=== PATIENT | male | born 1985 | race Caucasian/White ===

== ENCOUNTER 2024-10-18 00:43 | Emergency (ER) | payer OTHER, SELFPAY ==
[2024-10-18 00:44] VITALS: BP 116/77; PULSE 47; RESP 19; TEMP 36.7; O2SAT 100; BMI 22.7
--- NOTE | 2024-10-18 00:50 | EKG12_ITS ---
Test Reason : DYSRHYTHMIA Blood Pressure : */* mmHG Vent. Rate : 49 BPM Atrial Rate : 49 BPM P-R Int : 192 ms QRS Dur : 90 ms QT Int : 476 ms P-R-T Axes : 53 60 49 degrees QTcB Int : 429 ms Sinus bradycardia Septal infarct , age undetermined Abnormal ECG Confirmed by ROYAL PANIAGUA MD ([id number]), writer editor MAX COTTON ([id number]) on 10/19/2024 1:13:39 PM Referred By: BLAKE Confirmed By: ROYAL PANIAGUA MD
[2024-10-18 01:20] LABS: Hematocrit 41.6 % (40-54); Hemoglobin 14.1 g/dL (13.0-16.5); Immature Granulocytes Count 0.100 X10^3/uL (0.0-0.0); Mean Corp Hgb Conc 33.9 g/dL (32-36); Mean Corpuscular Volume 87.6 fL (80-94); Mean Platelet Vol. 8.9 fl (6.2-12.0); NRBC Flagged by Analyzer 0 % (0-5); Platelet Count 191 K/mm3 (150-450); RBC Distribution Width CV 12.9 % (11.6-14.6); RBC Distribution Width SD 41.8 fl (35.1-43.9); Red Blood Count 4.75 M/mm3 (4.6-6.2); White Blood Count 16.0 K/mm3 (4.4-11.0)
--- NOTE | 2024-10-18 01:20 | RAD_ITS ---
PROCEDURE: CHEST PA AND LATERAL 10/18/2024 REASON FOR EXAM: CHEST PAIN TECHNIQUE: CHEST PA AND LATERAL COMPARISON: No FINDINGS: Normal heart size. Well inflated lungs. No consolidation, effusion, or pneumothorax. RAD/Chest PA and Lateral IMPRESSION: No acute chest findings. Reading Location: [place] [id number]
[2024-10-18] MEDS: Lidocaine 2% Viscous15 ML UDC 15 ML PO (01:28)
[2024-10-18] MEDS: Pantoprazole Sodium 40 MG in 0.9% Normal Saline (100mL MB+) 100 ML 300 MG IV (01:34)
[2024-10-18 01:43] VITALS: BP 113/74; PULSE 45; RESP 15; O2SAT 97
[2024-10-18 02:00] VITALS: BP 110/76; PULSE 47; RESP 15; O2SAT 97
--- OUTSIDE RECORDS SUMMARY | 2024-10-18 02:01 | XMS RPT_ITS | CCD ---
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 Name Role Phone Walter Little MD Primary Care Provider WALTER LITTLE Referring UnavailWALTER Navarro Primary Care Unavailab GIULIANA Weldon Attending WALTER Larios Attending WALTER Garvin Primary Care UnavailWALTER Navarro Attending WALTER Garvin Primary Care UnavailWALTER Navarro Referring Unavailab WALTER Forrest Attending WALTER Garvin Primary Care UnavailWALTER Navarro Referring UnavailWALTER Navarro Primary Care Unavailab torrez Medications Completed/Discontinued Medications Medication Drug Class(es) Dates Sig (Normalized) Sig (Original) multivitamin tablet (4 sources) Start: 11-07-2021 take 1 tablet by mouth once daily multivitamin tablet Take 1 tablet by mouth once daily. 0 11/07/2021 Active Comment on above: Take 1 tablet by leyda th once daily. sertraline 50 mg oral tablet (8 sources) Serotonin Reuptake Inhibitor Start: 01-10-2021 take 1 tablet by mouth once daily sertraline (ZOLOFT) 50 mg tablet Take 1 tablet by mouth once daily. 90 tablet 3 01/10/2021 Active Comment on above: Take 1 tablet by leyda th once daily. Problems Active Problems Problem Classification Problem Date Documented Date Episodic/Chronic Adjustment disorders (8 sources) Adjustment disorder with mixed anxiety and depressed mood; Translations: [Adjustment disorder with mixed anxiety and depressed mood] Onset: 01-20-2017 01-20-2017 Chronic Anxiety disorders (2 sources) Generalized anxiety disorder; Translations: [Generalized anxiety disorder] Onset: 08-04-2021 Chronic Immunizations and screening for infectious disease (4 sources) Patient encounter status; Translations: [Encounter for screening for human immunodeficiency virus [HIV]] Onset: 11-07-2021 Episodic Mood disorders (3 sources) Severe recurrent major depression without psychotic features; Translations: [Major depressive disorder, recurrent severe without psychotic features] Onset: 08-04-2021 Chronic Other skin disorders (2 sources) Epidermoid cyst of skin of back; Translations: [Epidermal cyst] Episodic Other skin disorders (1 source) Epidermal cyst; Translations: [Epidermoid cyst of skin of back] Onset: 11-15-2021 Episodic Past or Other Problems Problem Classification Problem Date Documented Da te Episodic/Chronic Suicide and intentional self-inflicted injury (2 sources) Suicidal thoughts; Translations: [Suicidal ideations] Onset: 08-04-2021 Episodic Results Test Name Value Interpretation Reference Range Gema Moreno 11-15-2021 CNOV Office Visit (HEATHER ) [place] ([id number]) 1985 M Date Time Provider Department 11/15/21 4:00 PM GIULIANA VIDAL During your visit today, we recorded the following information about you: Temperature Pulse Blood pressure Weight 97.5 degrees 57/minute 122/68 78.5 kg Height 1.778 m Mariposa Mariscal LPN 11/15/2021 3:57 PM Signed REVIEW OF SYSTEMS: General: The patient denies fatigue, denies weight loss, denies weight gain, denies feeling hot, and denies feelings of cold. Eyes: The patient denies glaucoma, denies eye injury/surgery, does not wear glasses or contacts. Ear/Nose/Throat: The patient notes allergies, denies hayfever, denies ear infections, and denies bloody noses. Cardiovascular: The patient denies chest pain, denies heart disease, denies high blood pressure,denies cardiac stent, denies prior heart attack, denies irregular heart beat, denies high cholesterol, denies poor circulation, denies heart failure, other cardiac issues, denies claudication, denies cold feet, denies peripheral arterial stent. Respiratory: The patient denies tuberculosis, notes pneumonia, denies frequent cough, denies pulmonary embolism, denies shortness of breath, and denies coughing up blood. Gastrointestinal: The patient denies difficulty swallowing, denies acid reflux, denies ulcers, denies vomiting, denies jaundice/hepatitis, denies gallbladder problems, denies black or tarry stools, denies hemorrhoids, denies bleeding from rectum, denies diverticulitis, denies constipation, denies diarrhea, denies loss of stool control, and denies hernias. Kidney/Bladder: The patient denies kidney stones, denies urine infections, and denies bloody urine. Skin: The patient denies a history of skin cancer, denies bleeding/changing moles, and denies a history of skin rash. Neurologic: The patient denies a history of epilepsy/convulsions, notes headaches, denies head/spinal injuries, and denies stroke/TIA. Psychiatric: The patient denies psychiatric medications, notes depression, and denies voices, denies substance abuse. Endocrine: The patient denies thyroid disorders, denies diabetes, and denies hormonal problems. Hematologic: The patient denies a history of bruising, denies bleeding, and denies anemia, denies blood clots. Infections: The patient denies a history of measles and mumps, denies rheumatic fever, and denies sexually transmitted diseases. Musculoskeletal: The patient notes back pain/injury, denies back problems, denies sciatica, denies knee/foot trouble, denies arthritis, or denies gout. When was patient's last Mammogram screening? N/A Last Colonoscopy: none DIONY Norton MD 11/18/2021 5:18 PM Signed [place] 1985 REFERRING PHYSICIAN: Walter Little,* CHIEF COMPLAINT: Consult (Cyst on back) HPI: The patient is a pleasant 36 year old male presents with sebaceous cyst of mid back. He has noted this lesion for years. His has tried to squeeze out contents in the past. He denies history of infection in that area. He presents for evaluation PAST MEDICAL HISTORY Diagnosis Date LAKEISHA (generalized anxiety disorder) Major depression, chronic Manic episode (HCC) Suicidal ideation PAST SURGICAL HISTORY Procedure Laterality Date PAST SURGICAL HISTORY OF Right 2015 inguinal hernia repair Current Outpatient Medications Medication Sig multivitamin tablet Take 1 tablet by mouth once daily. sertraline (ZOLOFT) 50 mg tablet Take 1 tablet by mouth once daily. ALLERGIES: Patient has no known allergies. PERSONAL HISTORY: Social History Tobacco Use Smoking status: Never Smokeless tobacco: Never Vaping Use Vaping Use: Never used Substance Use Topics Alcohol use: Yes Alcohol/week: 3.0 standard drinks Types: 3 Cans of beer per week Comment: occasional Drug use: Never FAMILY HISTORY Problem Relation Age of Onset Depression Mother No Known Problems Father Cancer Sister hodgkins lymphoma No Known Problems Maternal Grandmother Alcohol/Drug Maternal Grandfather alcoholism other (other) Paternal Grandmother car accident in mid s other (other) Paternal Grandfather of old age Psychiatry Paternal Uncle suicide The review of systems data was entered by the nurse and reviewed by tx Nursing Notes: Mariposa Mariscal LPN 11/15/2021 3:57 PM Signed REVIEW OF SYSTEMS: General: The patient denies fatigue, denies weight loss, denies weight gain, denies feeling hot, and denies feelings of cold. Eyes: The patient denies glaucoma, denies eye injury/surgery, does not wear glasses or contacts. Ear/Nose/Throat: The patient notes allergies, denies hayfever, denies ear infections, and denies bloody noses. Cardiovascular: The patient denies chest pain, denies heart disease, denies high blood pressure,denies cardiac (more content not included)... Normal [facility] 11-15-2021 [facility] Telephone (PIPPA) [place] ([id number]) 1985 M Date Time Provider Department 11/15/21 DAVID MARTINEZ During your visit today, we recorded the following information about you: David Martinez APRN.CNP 11/15/2021 10:33 AM Signed I do not see how I can delete the HIV test. He will need to tell lab he does not want to have this completed. Hepatitis C screening showing antibodies to hepatitis C but no viral load meaning he was exposed at some time but he has cleared it. The rest of his blood work is within acceptable limits. David Martinez APRN.MARY ANN Canada LPN 11/15/2021 10:48 AM Signed Patient notified of message below. Voices understanding. Esther Canada LPN Allergies As of Date: 11/15/2021 (No Known Allergies) Date Reviewed: 11/07/2021 Reviewed by: Syl Castillo LPN - Fully Assessed Reason for Visit: Results [95] Prescriptions as of 11/15/2021 - multivitamin tablet Take 1 tablet by mouth once daily. - sertraline (ZOLOFT) 50 mg tablet Take 1 tablet by mouth once daily. Problem List As Of Date 11/15/2021 Noted Resolved Adjustment disorder with mixed anxiety and depr*01/20/2017 Encounter Status:Closed by ESTHER CANADA on 11/15/21 [facility] Peng 11-14-2021 [place] Telephone (HORACIOWS) [place] ([id number]) 1985 Date Time Provider Department 11/14/21 DAVID MARTINEZ During your visit today, we recorded the following information about you: David Martinez APRN.MARY ANN 11/14/2021 8:54 AM Signed Can we find out why patient's CMP and HIV were not completed with recent blood work? David Martinez APRN.MARY ANN Castillo LPN 11/14/2021 10:34 AM Signed Per main lab number they stated those two were missed by whomever honorio patient's blood. They can do the HIV but patient will need to return to have CMP drawn. Will phone him and advise him. Syl Castillo LPN 11/14/2021 10:38 AM Signed Phone patient and message left for him to return call. Patient will need to return for CMP to be drawn. Missed at 11/07/21 draw. HIV was also missed but was advised that one could be added on. David Martinez APRN.CNP 11/14/2021 1:35 PM Signed Orders in place for CMP and HIV. David Martinez APRN.MARY ANN Catherine RN 11/15/2021 10:07 AM Signed Pt called and is notified of providers message. Pt reports he will come in and get the CMP done, but he does not want to get the HIV done. Pt asking if provider could go over lab results. Please call and advise. RAY Peralta RN 11/15/2021 1:34 PM Signed Patricia with [facility] lab reports they could not add the HIV test as they got rid of the sample 30 min after testing was done. Allergies As of Date: 11/14/2021 (No Known Allergies) Date Reviewed: 11/07/2021 Reviewed by: Syl Castillo LPN - Fully Assessed Reason for Visit: Patient Update [1234] Cmt: Patient will need to return for CMP to be drawn. Missed at 11/07/21 draw. HIV was also missed but was advised that one could be added on. Prescriptions as of 12/11/2021 - multivitamin tablet Take 1 tablet by mouth once daily. - sertraline (ZOLOFT) 50 mg tablet Take 1 tablet by mouth once daily. Problem List As Of Date 11/14/2021 Noted Resolved Adjustment disorder with mixed anxiety and depr*01/20/2017 Encounter Status:Closed by DAVID MARTINEZ on 12/11/21 Normal [facility] CBC panel Auto (Bld)on 11-07 Erythrocyte distribution width (RBC) [Ratio] 12.2 % Normal 11.5-15.0 [facility] Comment on above: Order Comment: Speci men Type: BLOOD SPECIMENOrdering Facility: [facility] Address: [address] [place] [address] [place] [address] Performed By: #### 5 8410-2 ####[facility] [id number] [place] [address] [place] Hematocrit (Bld) [Volume fraction] 46.8 % Normal 39.0-51.0 [facility] Comment on above: Order Comment: Speci men Type: BLOOD SPECIMENOrdering Facility: [facility] Address: [address] [place], [place] [id number] Performed By: #### 5 8410-2 ####[facility] [id number] [place] [address] [place] Hemoglobin (Bld) [Mass/Vol] 16.0 g/dL Normal 13.0-17.0 [facility] Comment on above: Order Comment: Speci men Type: BLOOD SPECIMENOrdering Facility: [facility] Address: [address] [place], [place] [id number] Performed By: #### 5 8410-2 ####[facility] [id number] [place] [address] [place] MCH (RBC) [Entitic mass] 29.5 pg Normal 26.0-34.0 [facility] Comment on above: Order Comment: Speci men Type: BLOOD SPECIMENOrdering Facility: [facility] Address: [address] [place], [place] [id number] Performed By: #### 5 8410-2 ####[facility] [id number] [place] [address] [place] MCHC (RBC) [Mass/Vol] 34.2 g/dL Normal 30.5-36.0 [facility] Comment on above: Order Comment: Speci men Type: BLOOD SPECIMENOrdering Facility: [facility] Address: [address] [place], [place] [id number] Performed By: #### 5 8410-2 ####[facility] [id number] [address] STATES OF [facility] MCV (RBC) [Entitic vol] 86.3 fL Normal 80.0-100.0 [facility] Comment on above: Order Comment: Speci men Type: BLOOD SPECIMENOrdering Facility: [facility] Address: [address] [place], [place] [address] Performed By: #### 5 8410-2 ####[facility] [id number] [place] [address] [place] Nucleated RBC (Bld) [#/Vol] 10*3/uL Normal <0.01 [facility] Comment on above: Order Comment: Speci men Type: BLOOD SPECIMENOrdering Facility: [facility] Address: [address] [place], [place] [address] Performed By: #### 5 8410-2 ####[facility] [id number] [place] [address] [place] Platelet mean volume (Bld) [Entitic vol] 9.4 fL Normal 9.0-12.7 [facility] Comment on above: Order Comment: Speci men Type: BLOOD SPECIMENOrdering Facility: [facility] Address: [address] [place], [place] [address] Performed By: #### 5 8410-2 ####[facility] [id number] [place] [address] [place] Platelets (Bld) [#/Vol] 217 10*3/uL Normal 150-400 [facility] Comment on above: Order Comment: Speci men Type: BLOOD SPECIMENOrdering Facility: [facility] Address: [address] [place], [place] [address] Performed By: #### 5 8410-2 ####[facility] [id number] [place] [address] [place] RBC (Bld) [#/Vol] 5.42 10*6/uL Normal 4.20-6.00 [facility] Comment on above: Order Comment: Speci men Type: BLOOD SPECIMENOrdering Facility: [facility] Address: [address] [place] [address] Performed By: #### 5 8410-2 ####[facility] [id number] [place] [address] [place] WBC (Bld) [#/Vol] 8.46 10*3/uL Normal 3.70-11.00 [facility] Comment on above: Order Comment: Speci men Type: BLOOD SPECIMENOrdering Facility: [facility] Address: [address] [place] [address] Performed By: #### 5 8410-2 ####[facility] [id number] [address] [place] CNOVon 11-07-2021 CNOV Office Visit (FAMPWS ) [place] ([id number]) 1985 M Date Time Provider Department 11/07/21 3:40 PM WALTER LITTLEPWS During your visit today, we recorded the following information about you: Pulse Respiration Blood pressure Weight 64/minute 16/minute 114/70 77.9 kg Height 1.799 m Walter Little MD 11/07/2021 4:42 PM Signed Chief Complaint Patient presents with: Physical HPI Que Key is a 36 year old male who presents here today for annual physical. No complaints. Patient started on Zoloft by [facility] center for anxiety/depression with suicidal ideation back in July. Has had monthly appointments with KATHY Awan with last OV 1 week ago and appointments every 2-4 weeks with counseling. No change to regimen. Symptoms well controlled without SI/HI, panic symptoms, manic episodes. F/u appointment with STERILISATION TECHNICIAN in 3 months. Weight in normal range. Exercises by walking at work and runs for at least 30-60 minutes on the weekend. Not specific diet, but tries to eat healthy. Due for HIV and hepatitis C screening. Up to date on vaccinations aside from COVID booster. Discussed getting new vaccine when it comes out in the next 1-2 months. Past medical history, appointments, medications, allergies reviewed. Previous Medical History PAST MEDICAL HISTORY Diagnosis Date LAKEISHA (generalized anxiety disorder) Major depression, chronic Manic episode (HCC) Suicidal ideation Previous Surgical History PAST SURGICAL HISTORY Procedure Laterality Date PAST SURGICAL HISTORY OF Right 2015 inguinal hernia repair Family History FAMILY HISTORY Problem Relation Age of Onset Depression Mother No Known Problems Father Cancer Sister hodgkins lymphoma No Known Problems Maternal Grandmother Alcohol/Drug Maternal Grandfather alcoholism other (other) Paternal Grandmother car accident in mid 1969's other (other) Paternal Grandfather of old age Psychiatry Paternal Uncle suicide Patient Allergies ALLERGIES No Known Allergies Current Medications Current Outpatient Medications on File Prior to Visit Medication Sig sertraline (ZOLOFT) 50 mg tablet Take 1 tablet by mouth once daily. No current facility-administered medications on file prior to visit. Social History Social History Tobacco Use Smoking status: Never Smokeless tobacco: Never Substance Use Topics Alcohol use: Yes Comment: occasional Drug use: Never Review of Symptoms REVIEW OF SYSTEMS GENERAL: No weight loss, malaise or fevers HEENT: Negative for frequent or significant headaches, No changes in hearing or vision, no nose bleeds or other nasal problems NECK: Negative for lumps, goiter, pain and significant neck swelling RESPIRATORY: Negative for cough, hemoptysis, wheezing, COPD, dyspnea or shortness of breath CARDIOVASCULAR: Negative for chest pain, leg swelling, hypertension, CHF or palpitations GI: No nausea, vomiting, or diarrhea : No history of dysuria, frequency or incontinence MUSCULOSKELETAL: Negative for joint pain or swelling, back pain or muscle pain SKIN: Negative for lesions, rash, and itching EXAM: BP 114/70 Pulse 64 Resp 16 Ht 179.9 cm (5' 10.83) Wt 77.9 kg (171 lb 12.8 oz) SpO2 98% BMI 24.08 kg/m? General Appearance: Well appearing, alert, in no acute distress, well-hydrated, well nourished.. Skin: 1 cm epidermoid cyst on middle of upper back. Unable to express. No inflammation. Otherwise normal exam of exposed skin. Head: Normocephalic, no masses, lesions, tenderness or abnormalities. Eyes: Anicteric sclera. Pupils are equally round and reactive to light. Extraocular movements are intact. . Ears: External ears normal, canals clear. Neck: Supple, no adenopathy; thyroid symmetric, normal size, no bruits. Lungs: Lungs clear to auscultation. No wheezing, rhonchi, rales.. Heart: RRR without murmur, gallop, or rubs. No ectopy. Abdomen: Normal abdominal exam, Abdomen soft, non-tender. Bowel sounds normal. No masses, organomegaly. Extremities: No deformities, edema, skin discoloration, clubbing or cyanosis. Good capillary refill. . Health Maintenance List HEPATITIS C SCREENING Never done HIV SCREENING Never done HEPATITIS B(2 of 3 - 3-dose series) due on 07/09/2012 COVID-19 VACCINE(3 - Booster for Moderna series) due on 10/13/2020 INFLUENZA(1) due on 11/09/2021 LIPID SCREEN due on 01/11/2022 DEPRESSION SCREENING due on 11/04/2022 DTAP,TDAP,TD(6 - Td or Tdap) due on 04/07/2029 Data reviewed Component Latest Ref Rng AND Units 01/11/2017 Triglyceride 30 - 149 mg/dL 77 Cholesterol, Total 100 - 199 mg/dL 195 HDL Cholesterol >45 mg/dL 57 VLDL Cholesterol 6 - 40 mg/dL 15 LDL Cholesterol 60 - 129 mg/dL 123 Fasting Time hrs 1 TC:HDL Ratio 1.00 - 5.00 3.42 LDL:HDL Ratio 0.50 - 3.55 2.16 Non HDL Cholesterol 90 - (more content not included)... Normal [facility] HCV Ab Ser Qlon 11-07-2021 HCV Ab Ql (S) Positive Abnormal Negative [facility] Comment on above: Order Comment: Speci men Type: BLOOD SPECIMENOrdering Facility: [facility] Address: [address] [place] [address] Result Comment: Conf irmation with Hepatitis C RNA has been ordered and charged. Performed By: #### 1 6128-1, 30487-9 ####[facility] [id number] [address] [place] HCV RNA SerPl LUANNE+probe-aCnc on 11-07-2021 HCV RNA LUANNE+probe Qn Not detected Normal HCV RNA not detected by PCR. [facility] Comment on above: Order Comment: Speci men Type: BLOOD SPECIMENOrdering Facility: [facility] Address: [address] [place], [place] [address] Performed By: #### 1 6128-1, 70499-0 ####[facility] [id number] [address] OF [facility] LIPID PANEL, NONFASTINGon Cholesterol [Mass/Vol] 181 mg/dL Normal <200 [facility] Comment on above: Order Comment: Speci men Type: BLOOD SPECIMENOrdering Facility: [facility] Address: [address] [place] [address] Result Comment: <200 mg/dL, Desirable 200-239 mg/dL, Borderline high >239 mg/dL, High Performed By: #### L IPNF ####[facility] [id number] [place] [address] [place] HDL CHOLESTEROL, NF 55 mg/dL Normal >39 [facility] Comment on above: Order Comment: Speci men Type: BLOOD SPECIMENOrdering Facility: [facility] Address: [address] [place] [address] Result Comment: 40-5 9 mg/dL, Acceptable >59 mg/dL, High: Negative risk factor for coronary heart disease <40 mg/dL, Low: Positive risk factor for coronary heart disease Performed By: #### L IPNF ####[facility] [id number] [address] [place] LDL CHOLESTEROL, NF 104 mg/dL High <100 [facility] Comment on above: Order Comment: Speci men Type: BLOOD SPECIMENOrdering Facility: [facility] Address: [address] [place] [address] Result Comment: <100 mg/dL, Optimal 100-129 mg/dL, Near optimal/above optimal 130-159 mg/dL, Borderline high 160-189 mg/dL, High >189 mg/dL, Very high Secondary prevention optimal LDL Cholesterol levels are recommended to be < 70 mg/dL Performed By: #### L IPNF ####[facility] [id number] [address] LDL/HDL RATIO, NF 1.89 mg/dL Normal <2.54 [facility] Comment on above: Order Comment: Gerardo diaz Type: BLOOD SPECIMENOrdering Facility: [facility] Address: [address] [place] [address] Result Comment: Refe rence: 1. National Cholesterol Education Program ATP III Guideline At-A-Glance Quick Desk Reference: National Heart, Lung, and Blood [place]. National Institutes of Health. 2001: NIH Publication No. 01-3305. 2. An International Atherosclerosis Society position paper: global recommendations for the management of dyslipidemia: executive summary, Atherosclerosis. 2014: 232(2):410-413. Performed By: #### L IPNF ####[facility] [id number] [address] NON HDL CHOL, NF 126 mg/dL Normal <130 [facility] Comment on above: Order Comment: Gerardo diaz Type: BLOOD SPECIMENOrdering Facility: [facility] Address: [address] [place] [address] Result Comment: <130 mg/dL, Optimal 130-159 mg/dL, Near optimal/above optimal 160-189 mg/dL, Borderline high 190-219 mg/dL, High >219 mg/dL, Very high Secondary prevention optimal non HDL Cholesterol levels are recommended to be <100 mg/dL Performed By: #### L IPNF ####[facility] [id number] [address] [place] T CHOL/HDL RATIO NF 3.29 mg/dL Normal <5.10 [facility] Comment on above: Order Comment: Speci men Type: BLOOD SPECIMENOrdering Facility: [facility] Address: [address] [place] [address] Performed By: #### L IPNF ####[facility] [id number] [address] OF [place] TRIGLYCERIDES, NF 108 mg/dL Normal <150 [facility] Comment on above: Order Comment: Speci men Type: BLOOD SPECIMENOrdering Facility: [facility] Address: [address] [place] [address] Result Comment: <150 mg/dL, Normal 150-199 mg/dL, Borderline high 200-499 mg/dL, High >499 mg/dL, Very high Performed By: #### L IPNF ####[facility] [id number] [place] [address] [place] VLDL CHOLESTEROL, NF 22 mg/dL Normal <30 [facility] Comment on above: Order Comment: Speci men Type: BLOOD SPECIMENOrdering Facility: [facility] Address: [address] [place] [address] Performed By: #### L IPNF ####[facility] LABCLIA [id number] [address] OF [place] CNOVon 08-04-2021 CNOV Office Visit (FAMPWS ) QUE KEY ([id number]) 1985 M Date Time Provider Department 08/04/21 3:20 PM WALTER LITTLEPOBED During your visit today, we recorded the following information about you: Pulse Blood pressure Weight 50/minute 102/74 78.3 kg Walter Little MD 08/04/2021 3:54 PM Signed Chief Complaint Patient presents with: Follow Up HPI Que Key is a 35 year old male who presents here today for 1 month follow up of anxiety/depression, possible bipolar disorder, suicidal ideation. At last OV on 07/13, he was sent to crisis team for uncontrolled anxiety/depression, possible bipolar disorder, suicidal ideation. Patient did follow up with STERILISATION TECHNICIAN at counseling center and they restarted him on his SSRI, but did not add on any mood stabilizer. States that his mood is much improved and anxiety symptoms are better. Denies SI/HI, panic symptoms, manic episodes. Sleeping less, but is getting better quality sleep and is feeling well rested. Seeing counseling through counseling center as well with first appointment today. Not sure how often he will be seeing them. Has follow up with STERILISATION TECHNICIAN on August 17 and plans on following up with them monthly at this point. Past medical history, appointments, medications, allergies reviewed. Previous Medical History PAST MEDICAL HISTORY Diagnosis Date - Major depression, chronic Previous Surgical History PAST SURGICAL HISTORY Procedure Laterality Date - PAST SURGICAL HISTORY OF Right 2015 inguinal hernia repair Family History FAMILY HISTORY Problem Relation Age of Onset - Depression Mother - No Known Problems Father - Cancer Sister hodgkins lymphoma - No Known Problems Maternal Grandmother - Alcohol/Drug Maternal Grandfather alcoholism - other (other) Paternal Grandmother car accident in mid s - other (other) Paternal Grandfather of old age - Psychiatry Paternal Uncle suicide Patient Allergies ALLERGIES No Known Allergies Current Medications Current Outpatient Medications on File Prior to Visit Medication Sig - sertraline (ZOLOFT) 50 mg tablet Take 1 tablet by mouth once daily. No current facility-administered medications on file prior to visit. Social History Social History Tobacco Use - Smoking status: Never Smoker - Smokeless tobacco: Never Used Substance Use Topics - Alcohol use: Yes Comment: occasional - Drug use: Never Review of Symptoms REVIEW OF SYSTEMS See HPI EXAM: BP 102/74 Pulse (!) 50 Wt 78.3 kg (172 lb 9.6 oz) SpO2 98% BMI 24.07 kg/m? General Appearance: Well appearing, alert, in no acute distress, well-hydrated, well nourished.. PSYCH: Posture and motor behavior: normal posture and motor behavior Dress, grooming, personal hygiene: normal dress and grooming Facial expression: smiling Speech: normal speech Mood: cheerful Coherency and relevance of thought: normal thought processes Memory: normal memory Health Maintenance List COVID-19 VACCINE(3 - Booster for Moderna series) due on 10/13/2020 HEPATITIS C SCREENING due on 09/07/2021 HIV SCREENING due on 09/07/2021 LIPID SCREEN due on 01/11/2022 DEPRESSION SCREENING due on 07/13/2022 DTAP,TDAP,TD(6 - Td or Tdap) due on 04/07/2029 INFLUENZA Completed ASSESSMENT/PLAN: 1. LAKEISHA (generalized anxiety disorder) - ICD9: 300.02, ICD10: F41.1 (primary diagnosis) Improved on Zoloft. Continue treatment through psychiatry and counseling. F/u in 3 months for annual physical. 2. Severe episode of recurrent major depressive disorder, without psychotic features (HCC) - ICD9: 296.33, ICD10: F33.2 Improved on Zoloft. Continue treatment through psychiatry and counseling. F/u in 3 months for annual physical. 3. Manic episode (HCC) - ICD9: 296.00, ICD10: F30.9 Improved on Zoloft. Continue treatment through psychiatry and counseling. F/u in 3 months for annual physical. 4. Suicidal ideations - ICD9: V62.84, ICD10: R45.851 Improved on Zoloft. Continue treatment through psychiatry and counseling. F/u in 3 months for annual physical. Walter Little MD Allergies As of Date: 08/04/2021 (No Known Allergies) Date Reviewed: 08/04/2021 Reviewed by: Syl Castillo LPN - Fully Assessed Reason for Visit: Follow Up [171] Primary Visit Diagnosis:LAKEISHA (generalized anxiety disorder) [F41.1] Other Visit Diagnoses:Severe episode of recurrent major depressive disorder, without psychotic features (HCC) [F33.2] Manic episode (HCC) [F30.9] Suicidal ideations [R45.851] Prescriptions as of 08/04/2021 - sertraline (ZOLOFT) 50 mg tablet Take 1 tablet by mouth once daily. Problem List As Of Date 08/04/2021 Noted Resolved Adjustment disorder with mixed anxiety and depr*01/20/2017 Disposition: Return in about 3 months (around 11/04/2021) for annual physical. Follow-up and Disposition History (more content not included)... Normal [facility] CNOVon 07-13-2021 CNOV Office Visit (FAMPWS ) QUE KEY ([id number]) 1985 M Date Time Provider Department 07/13/21 3:20 PM WALTER LITTLE During your visit today, we recorded the following information about you: Pulse Respiration Blood pressure Weight 58/minute 16/minute 102/72 78.2 kg Walter Little MD 07/13/2021 3:57 PM Signed Chief Complaint Patient presents with: Anxiety HPI Que Key is a 35 year old male who presents here today for follow up on depression and new anxiety symptoms. Patient previously well controlled on Zoloft 50 mg daily until he stopped taking about 3-4 months ago when he had hard time getting it from [facility]. States that he felt well for about 2 weeks, and then with increased stress in mid May his depression symptoms returned and developed new anxiety. In the last few days has been having thoughts of self harm including thoughts of getting a gun and shooting himself. Patient states that this is not something he would ever do and does not have access to a gun. Feels safe going home today. Also notes that when he was taking his Zoloft along with coffee he would have episodes where he was very up and energetic and felt like he was moving a mile per minute. Usually lasted several hours and he would crash. Occasionally went more than 1 day with symptoms and would not need much sleep and still felt energetic. No prior diagnosis of bipolar disorder or manic episodes, but states he has cousin with bipolar disorder. Is not seeing counseling at this time. 07/13/21 1504 Last Filed Value LAKEISHA-7 - over the last 2 weeks... Feeling nervous, anxious, or on edge More than half the days More than half the days Not being able to stop or control worrying More than half the days More than half the days Worrying too much about different things Nearly Everyday Nearly Everyday Trouble relaxing Nearly Everyday Nearly Everyday Being so restless that it is hard to sit still Several days Several days Becoming easily annoyed or irritable More than half the days More than half the days Feeling afraid, as if something awful might happen More than half the days More than half the days How difficult to do work, care for home, get along with people Somewhat difficult Somewhat difficult LAKEISHA-2 Total Score 4 4 LAKEISHA-7 Total Score 15 15 LAKEISHA-7 Score 15 15 07/13/21 1506 Last Filed Value PHQ-9 Little interest or pleasure in doing things More than half the days More than half the days Feeling down, depressed, or hopeless Nearly every day Nearly every day Trouble falling or staying asleep, or sleeping too much Nearly every dayTrouble falling or staying asleep, or sleeping too much. Nearly every day. The comment is staying asleep. Taken on 07/13/21 1506 Nearly every dayTrouble falling or staying asleep, or sleeping too much. Nearly every day. The comment is staying asleep. Last Filed Value Feeling tired or having little energy Nearly every day Nearly every day Poor appetite or overeating Not at all Not at all Feeling bad about yourself - or that you are a failure or have let yourself or your family down Nearly every day Nearly every day Trouble concentrating on things, such as reading the newspaper or watching television Several days Several days Moving or speaking so slowly that other people could have noticed. Or the opposite - being so fidgety or restless that you have been moving around a lot more than usual Not at all Not at all Thoughts that you would be better off , or of hurting yourself in some way More than half the days More than half the days If you checked off any problems, how difficult have these problems made it for you to do your work, take care of things at home, or get along with other people? Very difficult Very difficult PHQ-9 score 17 17 PHQ-9 Score 17 17 PHQ-2 score 5 5 PHQ-2 Score 5 5 Past medical history, appointments, medications, allergies reviewed. Previous Medical History PAST MEDICAL HISTORY Diagnosis Date - Major depression, chronic Previous Surgical History PAST SURGICAL HISTORY Procedure Laterality Date - PAST SURGICAL HISTORY OF Right 2015 inguinal hernia repair Family History FAMILY HISTORY Problem Relation Age of Onset - Depression Mother - No Known Problems Father - Cancer Sister hodgkins lymphoma - No Known Problems Maternal Grandmother - Alcohol/Drug Maternal Grandfather alcoholism - other (other) Paternal Grandmother car accident in mid 1970s - other (other) Paternal Grandfather of old age - Psychiatry Paternal Uncle suicide Patient Allergies ALLERGIES No Known Allergies Current Medications Current Outpatient Medications on File Prior to Visit Medication Sig - sertraline (ZOLOFT) 50 mg tablet Take 1 tablet by mouth once daily. (Patient not taking: Reported on (more content not included)... Normal [facility] 07-13-2021 CNPN Telephone (PSCSTR) QUE KEY ([id number]) 1985 M Date Time Provider Department 07/13/[address] [facility] visit today, we recorded the following information about you: ÁNGELA Leon 07/13/2021 4:26 PM Addendum Behavioral Health Social Work Progress Note Patient identified for [facility] from: PCP Reason for referral: Resources Behavioral Health Resources: Psychology - talk therapy;Psychiatry med management [facility] encounter type: Telephone Encounter Attempts to Outreach: 1 attempt Referral made: Psychology - External;Psychiatry - External Psychology-External referral type: Therapy Psychiatry-External referral type: Medication Management Reason for external referral: Patient seeking jail support Final Disposition: Resources given Patient Discharged?: Yes Patient reported that caregiver was able to meet their needs today?: Yes [facility] referral/consult placed for urgent with passive SI, left detailed vmx re consult placed, CB# [phone] provided. Will await call back, if no call back with in [facility] follow up time frame (1-2 weeks) will send [place] message/mail out letter with resources. ÁNGELA Leon-Frank July 13, 2021 Allergies As of Date: 07/13/2021 (No Known Allergies) Date Reviewed: 07/13/2021 Reviewed by: Syl Castillo LPN - Fully Assessed Reason for Visit: Other [Other] Prescriptions as of 07/13/2021 - sertraline (ZOLOFT) 50 mg tablet Take 1 tablet by mouth once daily. Problem List As Of Date 07/13/2021 Noted Resolved Adjustment disorder with mixed anxiety and depr*01/20/2017 Encounter Status:Closed by [facility] ([id number]) 1985 Date Time Provider Department 07/13/21 XIMENA MARTÍNEZ PSCSTR During your visit today, we recorded the following information about you: ÁNGELA Leon 07/13/2021 4:34 PM Signed BEHAVIORAL HEALTH SOCIAL WORK CONSULT NOTE Service Date: July 13, 2021 Patient was identified by name and Patient: Que Key [id number] [place] [address] (home) [phone] (cell) PCP: Walter Little MD [address] [place] [address] Patient identified for [facility] from: PCP Reason for referral: Resources [facility] encounter type: MyChart Message Attempts to Outreach: 3 Referral made: Psychology - External; Psychiatry - External Final Disposition: Resources given [place]-SUICIDE SEVERITY RATING SCALE Screen Version - Recent Past month Ask questions that are bolded and underlined. YES/NO Ask Questions 1 and 2 1) Have you wished you were or wished you could go to sleep and not wake up? 2) Have you actually had any thoughts of killing yourself? If YES to 2, ask questions 3, 4, 5, and 6. If NO to 2, go directly to question 6. 3) Have you been thinking about how you might do this? E.g. ?I thought about taking an overdose but I never made a specific plan as to when where or how I would actually do it?.and I would never go through with it.? 4) Have you had these thoughts and had some intention of acting on them? As opposed to ?I have the thoughts but I definitely will not do anything about them.? 5) Have you started to work out or worked out the details of how to kill yourself? Do you intend to carry out this plan? 6) Have you ever done anything, started to do anything, or prepared to do anything to end your life? Examples: Collected pills, obtained a gun, gave away valuables, wrote a will or suicide note, took out pills but didn't swallow any, held a gun but changed your mind or it was grabbed from your hand, went to the roof but didn't jump; or actually took pills, tried to shoot yourself, cut yourself, tried to hang yourself, etc. If YES, ask: Was this within the past three months? YES/NO Low Risk Moderate Risk High Risk Patient identified for [facility] from: PCP Reason for referral: Resources Behavioral Health Resources: Psychology - talk therapy;Psychiatry med management [facility] encounter type: MyChart Message Assessment: Spoke with pt at length. Pt states has had SI in teens and in 20's done well on Zoloft but reported almost euphoric like feeling eventually then taking self off in April, now presenting to PCP with SI, thoughts to shoot self, but no access to gun, no actual plan or intent, family and supportive. Pt was actually going [facility] to [facility] [place] . 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 However was a bit unfamiliar with the process. CSSRS screen was completed low risk. Good support, close follow up with PCP in next week, currently getting assessment done with [facility]. SW provided supportive listening and education. Advised on mychart to be sent with additional resources. Medications: Current Outpatient Medications on File Prior to Visit Medication Sig - sertraline (ZOLOFT) 50 mg tablet Take 1 tablet by mouth once daily. (Patient not taking: Reported on 07/13/2021 ) No current facility-administered medications on file prior to visit. Curbside: No Screening Tools: No Substance Use / Abuse: No Outcome / Plan / Referrals: Attempts to Outreach: 3 attempts Referral made: Psychology - External;Psychiatry - External Psychology-External referral type: Therapy Psychiatry-External referral type: Medication Management Reason for external referral: Patient seeking moth exterminator support Final Disposition: Resources given Patient Discharged?: Yes Internal Referrals : Yes -Patient [facility] Patient was informed that they will be moving on for further evaluation if seeking treatment within the [facility] system. Reason for External Referrals : Wait is too long and Location Intervention: Supportive Counseling Supportive Listening Education Pt was walking into crisis assessment with [facility] Resources Provided: Medication Management Talk Therapy Community Resources Time Spent: 31 minutes to 1 hour ROBLES Leon Allergies As of Date: 07/13/2021 (No Known Allergies) Date Reviewed: 07/13/2021 Reviewed by: Syl Castillo LPN - Fully Assessed Reason for Visit: patient outreach [Other] Prescriptions as of 07/13/2021 - sertraline (ZOLOFT) 50 mg tab (more content not included)... Normal [facility] OBSOLETEon 01-10-2021 OBSOLETE Refill (PIPPA) QUE KEY ([id number]) 1985 M Date Time Provider Department 01/10/21 WALTER LITTLE During your visit today, we recorded the following information about you: Martha Larose RN 01/10/2021 5:00 PM Signed Patient has been identified by name and date of : Yes Patient phones for refill(s): Pending Prescriptions Disp Refills SERTRALINE 50 MG TABLET 90 tablet 3 Sig: Take 1 tablet by mouth once daily. ANGELICA: No Date of last office visit in primary care: 09/07/20 Patient has 1 pill left. Last 2 Encounter Wt Readings: Date: Wt: 09/07/2020 80.3 kg (177 lb) 04/07/2019 81.6 kg (180 lb) Previous labs/tests for medication: Blood Counts: No results found for: WBC, RBC, HCT, HB, PLT Liver Function: No results found for: ALT, AST Please advise. Thank you. Martha Larose RN Allergies As of Date: 01/10/2021 (No Known Allergies) Date Reviewed: 09/07/2020 Reviewed by: Holly Gutierrez APRN.MOUNTING MACHINE OPERATOR - Fully Assessed Reason for Visit: Refill Request [94] Order(s):sertraline (ZOLOFT) 50 mg tabletTake 1 tablet by mouth once daily.Disp: 90 tabletRfl: 3 Prescriptions as of 01/10/2021 - sertraline (ZOLOFT) 50 mg tablet Take 1 tablet by mouth once daily. Problem List As Of Date 01/10/2021 Noted Resolved Adjustment disorder with mixed anxiety and depr*01/20/2017 Prescriptions ordered this encounter Disp Refills Start End SERTRALINE 50 MG TABLET 90 t* 3 01/10/2021 Route: ORAL Sig: Take 1 tablet by mouth once daily. Medications Discontinued During This Encounter Prescriptions - sertraline (ZOLOFT) 50 mg tablet (Discontinued) Take 1 tablet by mouth once daily. Encounter Status:Closed by WALTER LITTLE on 01/10/21 Normal [facility] Vital Signs Date Time Vital Sign Value Performing Clinician Faci lity 11-15-2021 15:54-0400 Body height 177.8 cm Giuliana Vidal MD Work Phone: [facility] 11-15-2021 15:54-0400 Body temperature 97.5 [degF] Giuliana Vidal MD Work Phone: [facility] 11-15-2021 15:54-0400 Body weight 78.47 kg Giuliana Vidal MD Work Phone: [facility] 11-15-2021 15:54-0400 Diastolic blood pressure 68 mm[Hg] Giuliana Vidal MD Work Phone: [facility] 11-15-2021 15:54-0400 Heart rate 57 /min Giuliana Vidal MD Work Phone: [facility] 11-15-2021 15:54-0400 SaO2% (BldA) [Mass fraction] 96 % Giuliana Vidal MD Work Phone: [facility] 11-15-2021 15:54-0400 Systolic blood pressure 122 mm[Hg] Giuliana Vidal MD Work Phone: [facility] 11-07-2021 15:41-0400 Body height 179.9 cm Walter Little MD Work Phone: [facility] 11-07-2021 15:41-0400 Body weight 77.93 kg Walter Little MD Work Phone: [facility] 11-07-2021 15:41-0400 Diastolic blood pressure 70 mm[Hg] Walter Little MD Work Phone: [facility] 11-07-2021 15:41-0400 Heart rate 64 /min Walter Little MD Work Phone: [facility] 11-07-2021 15:41-0400 Respiratory rate 16 /min Walter Little MD Work Phone: [facility] 11-07-2021 15:41-0400 SaO2% (BldA) [Mass fraction] 98 % Walter Little MD Work Phone: [facility] 11-07-2021 15:41-0400 Systolic blood pressure 114 mm[Hg] Walter Little MD Work Phone: [facility] Encounters Encounter Date Encounter Type Care Provider Facility Start: 11-15-2021 End: 11-15-2021 Patient encounter procedure Giuliana Vidal MD Work Phone: [facility] Comment on above: Epidermoid cyst of s kin of back Start: 11-15-2021 End: 11-15-2021 ambulatory David Del Riologchloe BLACKNKayleenMOUNTING MACHINE OPERATOR Work Phone: [facility] [place] Start: 11-15-2021 E-mail encounter denice oconnell caregiver David Lopezchloe MAY.MOUNTING MACHINE OPERATOR Work Phone: [facility] Start: 11-14-2021 Telephone encounter David schulerchloe MAY.MOUNTING MACHINE OPERATOR Work Phone: [facility] Comment on above: Patient Update (Vita ent will need to return for CMP to be drawn. Missed at 11/07/21 draw. HIV was also missed but was advised that one could be added on.) Start: 11-07-2021 Patient encounter procedure WALTER LITTLE [facility] Start: 11-07-2021 End: 11-07-2021 ambulatory WALTER LITTLE Facility:[facility] Start: 11-07-2021 End: 11-07-2021 Patient encounter procedure Walter Little MD Work Phone: [facility] Comment on above: Annual physical exam (Primary Dx); LAKEISHA (generalized anxiety disorder); Severe episode of recurrent major depressive disorder, without psychotic features (HCC); Suicidal ideations; Screening for HIV (human immunodeficiency virus); Encounter for hepatitis C screening test for low risk patient; Epidermoid cyst of skin of back Start: 08-04-2021 End: 08-05-2021 ambulatory WALTER LITTLE Facility:[facility] Start: 07-14-2021 Chart abstracting Ximena MOTTA Work Phone: Adult Psychology Start: 07-13-2021 End: 07-13-2021 ambulatory Walter Little MD Work Phone: [facility] Start: 07-13-2021 Follow-up encounter Christian Little MD Work Phone: [facility] Comment on above: Follow Up Start: 07-13-2021 Telephone encounter Ximena MOTTA Work Phone: Adult Psychology Comment on above: Other patient outreach Procedures Date Procedure Procedure Detail Performing Clinician Start: 11-04-2021 Adult depression screening assessment Walter Little MD Work Phone: Start: 07-13-2021 Adult depression screening assessment Ximena MOTTA Work Phone: Plan of Treatment Date Care Activity Detail Author Start: 04-07-2029 Urine microalbumin profile DTAP,TDAP,TD (6 - Td or Tdap) [facility] Start: 11-07-2026 LIPID SCREEN LIPID SCREEN [facility] Start: 11-07-2022 COVID-19 VACCINE (3 - Booster for Moderna series) COVID-19 VACCINE (3 - Booster for Moderna series) [facility] Comment on above: Postponed from 10/13 (Declined at this time) Postponed from 07/08 (Declined at this time) Start: 11-04-2022 Adult depression screening assessment DEPRESSION SCREENING [facility] Start: 07-13-2022 Adult depression screening assessment DEPRESSION SCREENING [facility] Start: 01-11-2022 LIPID SCREEN LIPID SCREEN [facility] Start: 11-09-2021 Influenza vaccination INFLUENZA (#1) [facility] Start: 11-07-2021 End: 01-07-2022 CBC panel - Blood by Automated count [facility] Work Phone: Comment on above: Expected: 11/07/2021 , Expires: 01/07/2022 Start: 11-07-2021 End: 01-07-2022 Comprehensive metabolic 2000 panel - Serum or Plasma COMP METABOLIC PANEL Lab Routine Annual physical exam Expected: 11/07/2021, Expires: 01/07/2022 [facility] Work Phone: Comment on above: Expected: 11/07/2021 , Expires: 01/07/2022 Start: 11-07-2021 End: 01-07-2022 Hepatitis C virus Ab [Presence] in Serum [facility] Work Phone: Comment on above: Expected: 11/07/2021 , Expires: 01/07/2022 Start: 11-07-2021 End: 01-07-2022 HIV 1+2 Ab [Presence] in Serum or Plasma by Immunoassay HIV 1 2 COMBO(AG/AB),WITH REFLEX TO DIFFERENTIATION Lab Routine Screening for HIV (human immunodeficiency virus) Expected: 11/07/2021, Expires: 01/07/2022 [facility] Work Phone: Comment on above: Expected: 11/07/2021 , Expires: 01/07/2022 Start: 11-07-2021 End: 01-07-2022 LIPID PANEL, NONFASTING [facility] Work Phone: Comment on above: Expected: 11/07/2021 , Expires: 01/07/2022 Start: 09-07-2021 HEPATITIS C SCREENING HEPATITIS C [facility] Comment on above: Postponed from 09/08 (Declined at this time) Start: 09-07-2021 HIV SCREENING HIV SCREENING [facility] Comment on above: Postponed from 09/08 (Declined at this time) Start: 03-11-2021 DEPRESSION ASSESSMENT DEPRESSION ASS ESSMENT [facility] Start: 10-13-2020 COVID-19 VACCINE (3 - Booster for Moderna series) COVID-19 VACCINE (3 - Booster for Moderna series) [facility] Start: 2002 HEPATITIS C SCREENING HEPATITIS C [facility] Start: 2002 HIV SCREENING HIV SCREENING [facility] Immunizations Immunization Date Immunization Notes Care Provider Fa cility 05-13-2020 COVID-19 vaccine, fu ll dose (MODERNA) [facility] Work Phone: [facility] 04-12-2020 COVID-19 vaccine, fu ll dose (MODERNA) [facility] [facility] Work Phone: [facility] 04-07-2019 tetanus toxoid, redu daria diphtheria toxoid, and acellular pertussis vaccine, adsorbed [facility] Work Phone: [facility] 12-23-2018 influenza, injectabl e, quadrivalent, contains preservative [facility] Work Phone: [facility] 12-26-2017 influenza virus vaccine, unspecified formulation [facility] Work Phone: [facility] 01-11-2017 influenza, injectabl e, quadrivalent, contains preservative [facility] Work Phone: [facility] 12-20-2015 influenza, seasonal, injectable, preservative free [employer] Work Phone: [facility] 12-16-2015 influenza, injectabl e, quadrivalent, contains preservative [employer] Work Phone: [facility] Work Phone: 06-11-2012 hepatitis B vaccine, adult dosage [facility] Work Phone: [facility] 01-04-2012 hepatitis B vaccine, pediatric or pediatric/adolescent dosage [employer] Work Phone: [facility] 11-29-2011 hepatitis B vaccine, pediatric or pediatric/adolescent dosage [employer] Work Phone: [facility] 07-20-1997 measles, mumps and rubella virus vaccine [employer] Work Phone: [facility] 11-23-1986 haemophilus influenz ae type b vaccine, conjugate unspecified formulation [facility] [facility] Work Phone: [facility] 03-30-1986 diphtheria, tetanus toxoids and pertussis vaccine [employer] Work Phone: [facility] 03-30-1986 trivalent poliovirus vaccine, live, oral [employer] Work Phone: [facility] 01-13-1986 measles, mumps and rubella virus vaccine [employer] Work Phone: [facility] 04-15-1985 diphtheria, tetanus toxoids and pertussis vaccine [employer] Work Phone: [facility] 01-28-1985 diphtheria, tetanus toxoids and pertussis vaccine [employer] Work Phone: [facility] 01-28-1985 trivalent poliovirus vaccine, live, oral [employer] Work Phone: [facility] 1984 diphtheria, tetanus toxoids and pertussis vaccine [employer] Work Phone: [facility] 1984 trivalent poliovirus vaccine, live, oral [employer] Work Phone: [facility] Payers Date Payer Category Payer Unknown MMO MMO [employer] [id number] 2020-Present [phone] [address] [place] [address] PPO [id number] 2020 Unknown MMO MMO [employer] [id number] 2020-Present [phone] [address] [place] [address] PPO [id number] 2020 Unknown [id number] Social History Date Type Detail Facility Start: 03-20-2014 End: 11-07-2021 Tobacco smoking status NHIS Never smoked tobacco [facility] Work Phone: Start: 03-20-2014 End: 11-07-2021 Tobacco use and exposure Smokeless tobacco non-user [facility] Work Phone: Start: 07-13-2021 End: 11-07-2021 Alcohol intake Current drinker of alcohol (finding) [facility] Start: 04-08-2019 End: 07-31-2021 History SDOH Alcohol Frequency 4 [facility] Start: 04-08-2019 End: 07-31-2021 History SDOH Alcohol Std Drinks 1 [facility] Start: 09-07-2020 History SDOH Alcohol Comment occasional [facility] Start: 1985 Sex Assigned At Not on file [facility] Start: 07-03-2021 End: 11-15-2021 Exposure to SARS-CoV-2 (event) Not sure [facility] Work Phone: Start: 11-07-2021 End: 11-15-2021 Alcohol intake [facility] Start: 07-31-2021 History SDOH Alcohol Binge 2 [facility] Start: 07-31-2021 History SDOH Social Connections Phone 5 [facility] Start: 07-31-2021 History SDOH Social Connections Living 3 [facility] Start: 1985 Sex Assigned At Male C [facility] Clinical Notes 07-13-2021 to 11-16-2021 Giuliana Vidal MD - 11/16/2021 6:51 PM EDRenae Mariscal LPN - 11/15/2021 3:56 PM EDTTelephone Encounter - David MIYA Martinez - 11/15/2021 2:02 PM EDT Note Date & Type Note Facility 11-16-2021 Note HNO ID: [id number] Author: Giuliana Vidal MD Service: ? Author Type: Physician Type: Progress Notes Filed: 11/18/2021 5:18 PM Note Text: [place] 1985 REFERRING PHYSICIAN: Walter Little,* CHIEF COMPLAINT: Consult (Cyst on back) HPI: The patient is a pleasant 36 year old male presents with sebaceous cyst of mid back. He has noted this lesion for years. His has tried to squeeze out contents in the past. He denies history of infection in that area. He presents for evaluation PAST MEDICAL HISTORY Diagnosis Date LAKEISHA (generalized anxiety disorder) Major depression, chronic Manic episode (HCC) Suicidal ideation PAST SURGICAL HISTORY Procedure Laterality Date PAST SURGICAL HISTORY OF Right 2015 inguinal hernia repair Current Outpatient Medications Medication Sig multivitamin tablet Take 1 tablet by mouth once daily. sertraline (ZOLOFT) 50 mg tablet Take 1 tablet by mouth once daily. ALLERGIES: Patient has no known allergies. PERSONAL HISTORY: Social History Tobacco Use Smoking status: Never Smokeless tobacco: Never Vaping Use Vaping Use: Never used Substance Use Topics Alcohol use: Yes Alcohol/week: 3.0 standard drinks Types: 3 Cans of beer per week Comment: occasional Drug use: Never FAMILY HISTORY Problem Relation Age of Onset Depression Mother No Known Problems Father Cancer Sister hodgkins lymphoma No Known Problems Maternal Grandmother Alcohol/Drug Maternal Grandfather alcoholism other (other) Paternal Grandmother car accident in mid 1970's other (other) Paternal Grandfather of old age Psychiatry Paternal Uncle suicide The review of systems data was entered by the nurse and reviewed by me Nursing Notes: Mariposa Mariscal LPN 11/15/2021 3:57 PM Signed REVIEW OF SYSTEMS: General: The patient denies fatigue, denies weight loss, denies weight gain, denies feeling hot, and denies feelings of cold. Eyes: The patient denies glaucoma, denies eye injury/surgery, does not wear glasses or contacts. Ear/Nose/Throat: The patient notes allergies, denies hayfever, denies ear infections, and denies bloody noses. Cardiovascular: The patient denies chest pain, denies heart disease, denies high blood pressure,denies cardiac stent, denies prior heart attack, denies irregular heart beat, denies high cholesterol, denies poor circulation, denies heart failure, other cardiac issues, denies claudication, denies cold feet, denies peripheral arterial stent. Respiratory: The patient denies tuberculosis, notes pneumonia, denies frequent cough, denies pulmonary embolism, denies shortness of breath, and denies coughing up blood. Gastrointestinal: The patient denies difficulty swallowing, denies acid reflux, denies ulcers, denies vomiting, denies jaundice/hepatitis, denies gallbladder problems, denies black or tarry stools, denies hemorrhoids, denies bleeding from rectum, denies diverticulitis, denies constipation, denies diarrhea, denies loss of stool control, and denies hernias. Kidney/Bladder: The patient denies kidney stones, denies urine infections, and denies bloody urine. Skin: The patient denies a history of skin cancer, denies bleeding/changing moles, and denies a history of skin rash. Neurologic: The patient denies a history of epilepsy/convulsions, notes headaches, denies head/spinal injuries, and denies stroke/TIA. Psychiatric: The patient denies psychiatric medications, notes depression, and denies voices, denies substance abuse. Endocrine: The patient denies thyroid disorders, denies diabetes, and denies hormonal problems. Hematologic: The patient denies a history of bruising, denies bleeding, and denies anemia, denies blood clots. Infections: The patient denies a history of measles and mumps, denies rheumatic fever, and denies sexually transmitted diseases. Musculoskeletal: The patient notes back pain/injury, denies back problems, denies sciatica, denies knee/foot trouble, denies arthritis, or denies gout. When was patient's last Mammogram screening? N/A Last Colonoscopy: none Mariposa Mariscal LPN PHYSICAL EXAMINATION: General: The patient is 36 year old male, well nourished, well hydrated in no acute distress. The patient is oriented to time, place, and person. VITALS: Blood pressure 122/68, pulse (!) 57, temperature 36.4 ?C (97.5 ?F), height 177.8 cm (5' 10), weight 78.5 kg (173 lb), SpO2 96 %. Body mass index is 24.82 kg/m?. Head: Normal cephalic, atraumatic Eyes: pupils are equally round, sclera are clear/anicteric Neck is supple with no tracheal deviation Respiratory: Normal respiratory excursion and pattern. Abdominal exam: benign Back: mid back 1 cm rounded nodular skin lesion with central opening with blackhead Extremities: no clubbing, cyanosis or edema. Neuro: non focal Psych: normal mood Assessment IMPRESSION: epidermal inclusion cyst of back PLAN (more content not included)... [facility] 11-16-2021 History of Presen t illness Narrative [place] 1985 REFERRING PHYSICIAN: Walter Little,* CHIEF COMPLAINT: Consult (Cyst on back) HPI: The patient is a pleasant 36 year old male presents with sebaceous cyst of mid back. He has noted this lesion for years. His has tried to squeeze out contents in the past. He denies history of infection in that area. He presents for evaluation PAST MEDICAL HISTORY Diagnosis Date LAKEISHA (generalized anxiety disorder) Major depression, chronic Manic episode (HCC) Suicidal ideation PAST SURGICAL HISTORY Procedure Laterality Date PAST SURGICAL HISTORY OF Right 2015 inguinal hernia repair Current Outpatient Medications Medication Sig multivitamin tablet Take 1 tablet by mouth once daily. sertraline (ZOLOFT) 50 mg tablet Take 1 tablet by mouth once daily. ALLERGIES: Patient has no known allergies. PERSONAL HISTORY: Social History Tobacco Use Smoking status: Never Smokeless tobacco: Never Vaping Use Vaping Use: Never used Substance Use Topics Alcohol use: Yes Alcohol/week: 3.0 standard drinks Types: 3 Cans of beer per week Comment: occasional Drug use: Never FAMILY HISTORY Problem Relation Age of Onset Depression Mother No Known Problems Father Cancer Sister hodgkins lymphoma No Known Problems Maternal Grandmother Alcohol/Drug Maternal Grandfather alcoholism other (other) Paternal Grandmother car accident in mid other (other) Paternal Grandfather of old age Psychiatry Paternal Uncle suicide The review of systems data was entered by the nurse and reviewed by tx Nursing Notes: Mariposa Mariscal, PRINTING TABLE HAND 11/15/2021 3:57 PM Signed REVIEW OF SYSTEMS: General: The patient denies fatigue, denies weight loss, denies weight gain, denies feeling hot, and denies feelings of cold. Eyes: The patient denies glaucoma, denies eye injury/surgery, does not wear glasses or contacts. Ear/Nose/Throat: The patient notes allergies, denies hayfever, denies ear infections, and denies bloody noses. Cardiovascular: The patient denies chest pain, denies heart disease, denies high blood pressure,denies cardiac stent, denies prior heart attack, denies irregular heart beat, denies high cholesterol, denies poor circulation, denies heart failure, other cardiac issues, denies claudication, denies cold feet, denies peripheral arterial stent. Respiratory: The patient denies tuberculosis, notes pneumonia, denies frequent cough, denies pulmonary embolism, denies shortness of breath, and denies coughing up blood. Gastrointestinal: The patient denies difficulty swallowing, denies acid reflux, denies ulcers, denies vomiting, denies jaundice/hepatitis, denies gallbladder problems, denies black or tarry stools, denies hemorrhoids, denies bleeding from rectum, denies diverticulitis, denies constipation, denies diarrhea, denies loss of stool control, and denies hernias. Kidney/Bladder: The patient denies kidney stones, denies urine infections, and denies bloody urine. Skin: The patient denies a history of skin cancer, denies bleeding/changing moles, and denies a history of skin rash. Neurologic: The patient denies a history of epilepsy/convulsions, notes headaches, denies head/spinal injuries, and denies stroke/TIA. Psychiatric: The patient denies psychiatric medications, notes depression, and denies voices, denies substance abuse. Endocrine: The patient denies thyroid disorders, denies diabetes, and denies hormonal problems. Hematologic: The patient denies a history of bruising, denies bleeding, and denies anemia, denies blood clots. Infections: The patient denies a history of measles and mumps, denies rheumatic fever, and denies sexually transmitted diseases. Musculoskeletal: The patient notes back pain/injury, denies back problems, denies sciatica, denies knee/foot trouble, denies arthritis, or denies gout. When was patient's last Mammogram screening? N/A Last Colonoscopy: none Mariposa MariscalDIONY PHYSICAL EXAMINATION: General: The patient is 36 year old male, well nourished, well hydrated in no acute distress. The patient is oriented to time, place, and person. VITALS: Blood pressure 122/68, pulse (!) 57, temperature 36.4 C (97.5 F), height 177.8 cm (5' 10), weight 78.5 kg (173 lb), SpO2 96 %. Body mass index is 24.82 kg/m . Head: Normal cephalic, atraumatic Eyes: pupils are equally round, sclera are clear/anicteric Neck is supple with no tracheal deviation Respiratory: Normal respiratory excursion and pattern. Abdominal exam: benign Back: mid back 1 cm rounded nodular skin lesion with central opening with blackhead Extremities: no clubbing, cyanosis or edema. Neuro: non focal Psych: normal mood Assessment IMPRESSION: epidermal inclusion cyst of back PLAN: I have discussed the above with the patient. I have offered excision of this skin lesion. I have explained the procedure to the patient. To be done in the office using local anesthesia I have counseled the patient as to the risks of the procedure, including but not limited to: infection, bleeding, injury to any blood vessels/nerves, scar tissue, wound infections, complications of anesthesia, etc. - the patient understands. The patient is not interested in the procedure at this point in time. I have answered all questions to the patient s satisfaction and the patient has no further questions. I have confirmed and edited as necessary, the PFSH and ROS obtained by others. Consultation requested by Dr. Walter Little for an opinion regarding patient's skin lesion. My final recommendations will be communicated back to the requesting physician by way of shared Medical record or letter to requesting physician via US mail. . Diagnoses: (L72.0) Epidermoid cyst of skin of back Return to Clinic: The patient is instructed to follow-up with me as per needed, and/or any worsening signs/symptoms Medical Decision Making: Problems: Minimal: Self-limited or minor problem Medical Decision Making Level: 2 - Straightforward Giuliana Vidal MD documented in this encounter [facility] 11-15-2021 Nurse Note REVIEW OF SYSTEMS: General: The patient denies fatigue, denies weight loss, denies weight gain, denies feeling hot, and denies feelings of cold. Eyes: The patient denies glaucoma, denies eye injury/surgery, does not wear glasses or contacts. Ear/Nose/Throat: The patient notes allergies, denies hayfever, denies ear infections, and denies bloody noses. Cardiovascular: The patient denies chest pain, denies heart disease, denies high blood pressure,denies cardiac stent, denies prior heart attack, denies irregular heart beat, denies high cholesterol, denies poor circulation, denies heart failure, other cardiac issues, denies claudication, denies cold feet, denies peripheral arterial stent. Respiratory: The patient denies tuberculosis, notes pneumonia, denies frequent cough, denies pulmonary embolism, denies shortness of breath, and denies coughing up blood. Gastrointestinal: The patient denies difficulty swallowing, denies acid reflux, denies ulcers, denies vomiting, denies jaundice/hepatitis, denies gallbladder problems, denies black or tarry stools, denies hemorrhoids, denies bleeding from rectum, denies diverticulitis, denies constipation, denies diarrhea, denies loss of stool control, and denies hernias. Kidney/Bladder: The patient denies kidney stones, denies urine infections, and denies bloody urine. Skin: The patient denies a history of skin cancer, denies bleeding/changing moles, and denies a history of skin rash. Neurologic: The patient denies a history of epilepsy/convulsions, notes headaches, denies head/spinal injuries, and denies stroke/TIA. Psychiatric: The patient denies psychiatric medications, notes depression, and denies voices, denies substance abuse. Endocrine: The patient denies thyroid disorders, denies diabetes, and denies hormonal problems. Hematologic: The patient denies a history of bruising, denies bleeding, and denies anemia, denies blood clots. Infections: The patient denies a history of measles and mumps, denies rheumatic fever, and denies sexually transmitted diseases. Musculoskeletal: The patient notes back pain/injury, denies back problems, denies sciatica, denies knee/foot trouble, denies arthritis, or denies gout. When was patient's last Mammogram screening? N/A Last Colonoscopy: none Mariposa Mariscal LPN documented in this encounter [facility] 11-15-2021 Miscellaneous Notes Patient did not HIV testing completed. David Martinez APRN.MARY ANN documented in this encounter [facility] 11-15-2021 Miscellaneous Notes Patricia with [facility] lab reports they could not add the HIV test as they got rid of the sample 30 min after testing was done. Pt called and is notified of providers message. Pt reports he will come in and get the CMP done, but he does not want to get the HIV done. Pt asking if provider could go over lab results. Please call and advise. Angelica Catherine RN Orders in place for CMP and HIV. David Martinez APRN.CNP Phone patient and message left for him to return call. Patient will need to return for CMP to be drawn. Missed at 11/07/21 draw. HIV was also missed but was advised that one could be added on. Per main lab number they stated those two were missed by whomever honorio patient's blood. They can do the HIV but patient will need to return to have CMP drawn. Will phone him and advise him. Can we find out why patient's CMP and HIV were not completed with recent blood work? David Martinez APRN.CNP documented in this encounter [facility] 11-07-2021 Note HNO ID: [id number] Author: Walter Little MD Service: ? Author Type: Physician Type: Progress Notes Filed: 11/07/2021 4:42 PM Note Text: Chief Complaint Patient presents with: Physical HPI Que Key is a 36 year old male who presents here today for annual physical. No complaints. Patient started on Zoloft by counseling center for anxiety/depression with suicidal ideation back in July. Has had monthly appointments with STERILISATION TECHNICIAN Felix Awan with last OV 1 week ago and appointments every 2-4 weeks with counseling. No change to regimen. Symptoms well controlled without SI/HI, panic symptoms, manic episodes. F/u appointment with STERILISATION TECHNICIAN in 3 months. Weight in normal range. Exercises by walking at work and runs for at least 30-60 minutes on the weekend. Not specific diet, but tries to eat healthy. Due for HIV and hepatitis C screening. Up to date on vaccinations aside from COVID booster. Discussed getting new vaccine when it comes out in the next 1-2 months. Past medical history, appointments, medications, allergies reviewed. Previous Medical History PAST MEDICAL HISTORY Diagnosis Date LAKEISHA (generalized anxiety disorder) Major depression, chronic Manic episode (HCC) Suicidal ideation Previous Surgical History PAST SURGICAL HISTORY Procedure Laterality Date PAST SURGICAL HISTORY OF Right 2015 inguinal hernia repair Family History FAMILY HISTORY Problem Relation Age of Onset Depression Mother No Known Problems Father Cancer Sister hodgkins lymphoma No Known Problems Maternal Grandmother Alcohol/Drug Maternal Grandfather alcoholism other (other) Paternal Grandmother car accident in mid s other (other) Paternal Grandfather of old age Psychiatry Paternal Uncle suicide Patient Allergies ALLERGIES No Known Allergies Current Medications Current Outpatient Medications on File Prior to Visit Medication Sig sertraline (ZOLOFT) 50 mg tablet Take 1 tablet by mouth once daily. No current facility-administered medications on file prior to visit. Social History Social History Tobacco Use Smoking status: Never Smokeless tobacco: Never Substance Use Topics Alcohol use: Yes Comment: occasional Drug use: Never Review of Symptoms REVIEW OF SYSTEMS GENERAL: No weight loss, malaise or fevers HEENT: Negative for frequent or significant headaches, No changes in hearing or vision, no nose bleeds or other nasal problems NECK: Negative for lumps, goiter, pain and significant neck swelling RESPIRATORY: Negative for cough, hemoptysis, wheezing, COPD, dyspnea or shortness of breath CARDIOVASCULAR: Negative for chest pain, leg swelling, hypertension, CHF or palpitations GI: No nausea, vomiting, or diarrhea : No history of dysuria, frequency or incontinence MUSCULOSKELETAL: Negative for joint pain or swelling, back pain or muscle pain SKIN: Negative for lesions, rash, and itching EXAM: BP 114/70 Pulse 64 Resp 16 Ht 179.9 cm (5' 10.83) Wt 77.9 kg (171 lb 12.8 oz) SpO2 98% BMI 24.08 kg/m? General Appearance: Well appearing, alert, in no acute distress, well-hydrated, well nourished.. Skin: 1 cm epidermoid cyst on middle of upper back. Unable to express. No inflammation. Otherwise normal exam of exposed skin. Head: Normocephalic, no masses, lesions, tenderness or abnormalities. Eyes: Anicteric sclera. Pupils are equally round and reactive to light. Extraocular movements are intact. . Ears: External ears normal, canals clear. Neck: Supple, no adenopathy; thyroid symmetric, normal size, no bruits. Lungs: Lungs clear to auscultation. No wheezing, rhonchi, rales.. Heart: RRR without murmur, gallop, or rubs. No ectopy. Abdomen: Normal abdominal exam, Abdomen soft, non-tender. Bowel sounds normal. No masses, organomegaly. Extremities: No deformities, edema, skin discoloration, clubbing or cyanosis. Good capillary refill. . Health Maintenance List HEPATITIS C SCREENING Never done HIV SCREENING Never done HEPATITIS B(2 of 3 - 3-dose series) due on 07/09/2012 COVID-19 VACCINE(3 - Booster for Moderna series) due on 10/13/2020 INFLUENZA(1) due on 11/09/2021 LIPID SCREEN due on 01/11/2022 DEPRESSION SCREENING due on 11/04/2022 DTAP,TDAP,TD(6 - Td or Tdap) due on 04/07/2029 Data reviewed Component Latest Ref Rng AND Units 01/11/2017 Triglyceride 30 - 149 mg/dL 77 Cholesterol, Total 100 - 199 mg/dL 195 HDL Cholesterol >45 mg/dL 57 VLDL Cholesterol 6 - 40 mg/dL 15 LDL Cholesterol 60 - 129 mg/dL 123 Fasting Time hrs 1 TC:HDL Ratio 1.00 - 5.00 3.42 LDL:HDL Ratio 0.50 - 3.55 2.16 Non HDL Cholesterol 90 - 159 mg/dL 138 Glucose 74 - 99 mg/dL 78 ASSESSMENT/PLAN: 1. Annual physical exam - ICD9: V70.0, ICD10: Z00.00 (primary diagnosis) - Counseled on healthy diet and regular exercise - Counseled on limiting alcohol intake to 2 drinks per day - Follow up for annual exam in one year - CBC (more content not included)... [facility] 11-07-2021 History of Presen t illness Narrative Chief Complaint Patient presents with: Physical HPI Que Key is a 36 year old male who presents here today for annual physical. No complaints. Patient started on Zoloft by counseling center for anxiety/depression with suicidal ideation back in July. Has had monthly appointments with STERILISATION TECHNICIAN Felix Awan with last OV 1 week ago and appointments every 2-4 weeks with counseling. No change to regimen. Symptoms well controlled without SI/HI, panic symptoms, manic episodes. F/u appointment with STERILISATION TECHNICIAN in 3 months. Weight in normal range. Exercises by walking at work and runs for at least 30-60 minutes on the weekend. Not specific diet, but tries to eat healthy. Due for HIV and hepatitis C screening. Up to date on vaccinations aside from COVID booster. Discussed getting new vaccine when it comes out in the next 1-2 months. Past medical history, appointments, medications, allergies reviewed. Previous Medical History PAST MEDICAL HISTORY Diagnosis Date LAKEISHA (generalized anxiety disorder) Major depression, chronic Manic episode (HCC) Suicidal ideation Previous Surgical History PAST SURGICAL HISTORY Procedure Laterality Date PAST SURGICAL HISTORY OF Right 2015 inguinal hernia repair Family History FAMILY HISTORY Problem Relation Age of Onset Depression Mother No Known Problems Father Cancer Sister hodgkins lymphoma No Known Problems Maternal Grandmother Alcohol/Drug Maternal Grandfather alcoholism other (other) Paternal Grandmother car accident in mid 1970's other (other) Paternal Grandfather of old age Psychiatry Paternal Uncle suicide Patient Allergies ALLERGIES No Known Allergies Current Medications Current Outpatient Medications on File Prior to Visit Medication Sig sertraline (ZOLOFT) 50 mg tablet Take 1 tablet by mouth once daily. No current facility-administered medications on file prior to visit. Social History Social History Tobacco Use Smoking status: Never Smokeless tobacco: Never Substance Use Topics Alcohol use: Yes Comment: occasional Drug use: Never Review of Symptoms REVIEW OF SYSTEMS GENERAL: No weight loss, malaise or fevers HEENT: Negative for frequent or significant headaches, No changes in hearing or vision, no nose bleeds or other nasal problems NECK: Negative for lumps, goiter, pain and significant neck swelling RESPIRATORY: Negative for cough, hemoptysis, wheezing, COPD, dyspnea or shortness of breath CARDIOVASCULAR: Negative for chest pain, leg swelling, hypertension, CHF or palpitations GI: No nausea, vomiting, or diarrhea : No history of dysuria, frequency or incontinence MUSCULOSKELETAL: Negative for joint pain or swelling, back pain or muscle pain SKIN: Negative for lesions, rash, and itching EXAM: BP 114/70 Pulse 64 Resp 16 Ht 179.9 cm (5' 10.83) Wt 77.9 kg (171 lb 12.8 oz) SpO2 98% BMI 24.08 kg/m General Appearance: Well appearing, alert, in no acute distress, well-hydrated, well nourished.. Skin: 1 cm epidermoid cyst on middle of upper back. Unable to express. No inflammation. Otherwise normal exam of exposed skin. Head: Normocephalic, no masses, lesions, tenderness or abnormalities. Eyes: Anicteric sclera. Pupils are equally round and reactive to light. Extraocular movements are intact. . Ears: External ears normal, canals clear. Neck: Supple, no adenopathy; thyroid symmetric, normal size, no bruits. Lungs: Lungs clear to auscultation. No wheezing, rhonchi, rales.. Heart: RRR without murmur, gallop, or rubs. No ectopy. Abdomen: Normal abdominal exam, Abdomen soft, non-tender. Bowel sounds normal. No masses, organomegaly. Extremities: No deformities, edema, skin discoloration, clubbing or cyanosis. Good capillary refill. . Health Maintenance List HEPATITIS C SCREENING Never done HIV SCREENING Never done HEPATITIS B(2 of 3 - 3-dose series) due on 07/09/2012 COVID-19 VACCINE(3 - Booster for Moderna series) due on 10/13/2020 INFLUENZA(1) due on 11/09/2021 LIPID SCREEN due on 01/11/2022 DEPRESSION SCREENING due on 11/04/2022 DTAP,TDAP,TD(6 - Td or Tdap) due on 04/07/2029 Data reviewed Component Latest Ref Rng & Units 01/11/2017 Triglyceride 30 - 149 mg/dL 77 Cholesterol, Total 100 - 199 mg/dL 195 HDL Cholesterol >45 mg/dL 57 VLDL Cholesterol 6 - 40 mg/dL 15 LDL Cholesterol 60 - 129 mg/dL 123 Fasting Time hrs 1 TC:HDL Ratio 1.00 - 5.00 3.42 LDL:HDL Ratio 0.50 - 3.55 2.16 Non HDL Cholesterol 90 - 159 mg/dL 138 Glucose 74 - 99 mg/dL 78 ASSESSMENT/PLAN: 1. Annual physical exam - ICD9: V70.0, ICD10: Z00.00 (primary diagnosis) - Counseled on healthy diet and regular exercise - Counseled on limiting alcohol intake to 2 drinks per day - Follow up for annual exam in one year - CBC - COMP METABOLIC PANEL - LIPID PANEL BASIC - LIPID PANEL, NONFASTING 2. LAKEISHA (generalized anxiety disorder) - ICD9: 300.02, ICD10: F41.1 Controlled on current regimen. Continue zoloft and follow up with counseling and psychiatry. 3. Severe episode of recurrent major depressive disorder, without psychotic features (HCC) - ICD9: 296.33, ICD10: F33.2 Controlled on current regimen. Continue zoloft and follow up with counseling and psychiatry. 4. Suicidal ideations - ICD9: V62.84, ICD10: R45.851 Resolved. 5. Screening for HIV (human immunodeficiency virus) - ICD9: V73.89, ICD10: Z11.4 - HIV 1 2 COMBO(AG/AB),WITH REFLEX TO DIFFERENTIATION 6. Encounter for hepatitis C screening test for low risk patient - ICD9: V73.89, ICD10: Z11.59 - HEP C AB IA W/CONF SCRN 7. Epidermoid cyst of skin of back - ICD9: 706.2, ICD10: L72.0 Referral to surgery for excision. Red flags for re-assessment reviewed with patient in detail. - CONSULT TO GENERAL SURGERY Walter Little MD documented in this encounter [facility] 08-04-2021 Note HNO ID: [id number] Author: Walter Little MD Service: ? Author Type: Physician Type: Progress Notes Filed: 08/04/2021 3:54 PM Note Text: Chief Complaint Patient presents with: Follow Up HPI Que Key is a 35 year old male who presents here today for 1 month follow up of anxiety/depression, possible bipolar disorder, suicidal ideation. At last OV on 07/13, he was sent to crisis team for uncontrolled anxiety/depression, possible bipolar disorder, suicidal ideation. Patient did follow up with STERILISATION TECHNICIAN at counseling center and they restarted him on his SSRI, but did not add on any mood stabilizer. States that his mood is much improved and anxiety symptoms are better. Denies SI/HI, panic symptoms, manic episodes. Sleeping less, but is getting better quality sleep and is feeling well rested. Seeing counseling through counseling center as well with first appointment today. Not sure how often he will be seeing them. Has follow up with STERILISATION TECHNICIAN on August 17 and plans on following up with them monthly at this point. Past medical history, appointments, medications, allergies reviewed. Previous Medical History PAST MEDICAL HISTORY Diagnosis Date - Major depression, chronic Previous Surgical History PAST SURGICAL HISTORY Procedure Laterality Date - PAST SURGICAL HISTORY OF Right 2015 inguinal hernia repair Family History FAMILY HISTORY Problem Relation Age of Onset - Depression Mother - No Known Problems Father - Cancer Sister hodgkins lymphoma - No Known Problems Maternal Grandmother - Alcohol/Drug Maternal Grandfather alcoholism - other (other) Paternal Grandmother car accident in mid s - other (other) Paternal Grandfather of old age - Psychiatry Paternal Uncle suicide Patient Allergies ALLERGIES No Known Allergies Current Medications Current Outpatient Medications on File Prior to Visit Medication Sig - sertraline (ZOLOFT) 50 mg tablet Take 1 tablet by mouth once daily. No current facility-administered medications on file prior to visit. Social History Social History Tobacco Use - Smoking status: Never Smoker - Smokeless tobacco: Never Used Substance Use Topics - Alcohol use: Yes Comment: occasional - Drug use: Never Review of Symptoms REVIEW OF SYSTEMS See HPI EXAM: BP 102/74 Pulse (!) 50 Wt 78.3 kg (172 lb 9.6 oz) SpO2 98% BMI 24.07 kg/m? General Appearance: Well appearing, alert, in no acute distress, well-hydrated, well nourished.. PSYCH: Posture and motor behavior: normal posture and motor behavior Dress, grooming, personal hygiene: normal dress and grooming Facial expression: smiling Speech: normal speech Mood: cheerful Coherency and relevance of thought: normal thought processes Memory: normal memory Health Maintenance List COVID-19 VACCINE(3 - Booster for Moderna series) due on 10/13/2020 HEPATITIS C SCREENING due on 09/07/2021 HIV SCREENING due on 09/07/2021 LIPID SCREEN due on 01/11/2022 DEPRESSION SCREENING due on 07/13/2022 DTAP,TDAP,TD(6 - Td or Tdap) due on 04/07/2029 INFLUENZA Completed ASSESSMENT/PLAN: 1. LAKEISHA (generalized anxiety disorder) - ICD9: 300.02, ICD10: F41.1 (primary diagnosis) Improved on Zoloft. Continue treatment through psychiatry and counseling. F/u in 3 months for annual physical. 2. Severe episode of recurrent major depressive disorder, without psychotic features (HCC) - ICD9: 296.33, ICD10: F33.2 Improved on Zoloft. Continue treatment through psychiatry and counseling. F/u in 3 months for annual physical. 3. Manic episode (HCC) - ICD9: 296.00, ICD10: F30.9 Improved on Zoloft. Continue treatment through psychiatry and counseling. F/u in 3 months for annual physical. 4. Suicidal ideations - ICD9: V62.84, ICD10: R45.851 Improved on Zoloft. Continue treatment through psychiatry and counseling. F/u in 3 months for annual physical. Walter Little MD [facility] 07-17-2021 Miscellaneous Notes PATIENT RESCHEDULED 08/04. WILL CLOSE TE AT THIS TIME. I am glad to hear they got him in so quickly. If he has an appointment with psychiatry on 07/20, I would have reschedule his appointment with me for 2 weeks later so I can follow up on their recommendations and see how he is doing with any medications that are added. documented in this encounter [facility] 07-13-2021 Note HNO ID: [id number] Author: Walter Little MD Service: ? Author Type: Physician Type: Progress Notes Filed: 07/13/2021 3:57 PM Note Text: Chief Complaint Patient presents with: Anxiety HPI Que Key is a 35 year old male who presents here today for follow up on depression and new anxiety symptoms. Patient previously well controlled on Zoloft 50 mg daily until he stopped taking about 3-4 months ago when he had hard time getting it from [facility]. States that he felt well for about 2 weeks, and then with increased stress in mid May his depression symptoms returned and developed new anxiety. In the last few days has been having thoughts of self harm including thoughts of getting a gun and shooting himself. Patient states that this is not something he would ever do and does not have access to a gun. Feels safe going home today. Also notes that when he was taking his Zoloft along with coffee he would have episodes where he was very up and energetic and felt like he was moving a mile per minute. Usually lasted several hours and he would crash. Occasionally went more than 1 day with symptoms and would not need much sleep and still felt energetic. No prior diagnosis of bipolar disorder or manic episodes, but states he has cousin with bipolar disorder. Is not seeing counseling at this time. 07/13/21 1504 Last Filed Value LAKEISHA-7 - over the last 2 weeks... Feeling nervous, anxious, or on edge More than half the days More than half the days Not being able to stop or control worrying More than half the days More than half the days Worrying too much about different things Nearly Everyday Nearly Everyday Trouble relaxing Nearly Everyday Nearly Everyday Being so restless that it is hard to sit still Several days Several days Becoming easily annoyed or irritable More than half the days More than half the days Feeling afraid, as if something awful might happen More than half the days More than half the days How difficult to do work, care for home, get along with people Somewhat difficult Somewhat difficult LAKEISHA-2 Total Score 4 4 LAKEISHA-7 Total Score 15 15 LAKEISHA-7 Score 15 15 07/13/21 1506 Last Filed Value PHQ-9 Little interest or pleasure in doing things More than half the days More than half the days Feeling down, depressed, or hopeless Nearly every day Nearly every day Trouble falling or staying asleep, or sleeping too much Nearly every dayTrouble falling or staying asleep, or sleeping too much. Nearly every day. The comment is staying asleep. Taken on 07/13/21 1506 Nearly every dayTrouble falling or staying asleep, or sleeping too much. Nearly every day. The comment is staying asleep. Last Filed Value Feeling tired or having little energy Nearly every day Nearly every day Poor appetite or overeating Not at all Not at all Feeling bad about yourself - or that you are a failure or have let yourself or your family down Nearly every day Nearly every day Trouble concentrating on things, such as reading the newspaper or watching television Several days Several days Moving or speaking so slowly that other people could have noticed. Or the opposite - being so fidgety or restless that you have been moving around a lot more than usual Not at all Not at all Thoughts that you would be better off , or of hurting yourself in some way More than half the days More than half the days If you checked off any problems, how difficult have these problems made it for you to do your work, take care of things at home, or get along with other people? Very difficult Very difficult PHQ-9 score 17 17 PHQ-9 Score 17 17 PHQ-2 score 5 5 PHQ-2 Score 5 5 Past medical history, appointments, medications, allergies reviewed. Previous Medical History PAST MEDICAL HISTORY Diagnosis Date - Major depression, chronic Previous Surgical History PAST SURGICAL HISTORY Procedure Laterality Date - PAST SURGICAL HISTORY OF Right 2015 inguinal hernia repair Family History FAMILY HISTORY Problem Relation Age of Onset - Depression Mother - No Known Problems Father - Cancer Sister hodgkins lymphoma - No Known Problems Maternal Grandmother - Alcohol/Drug Maternal Grandfather alcoholism - other (other) Paternal Grandmother car accident in mid 1970s - other (other) Paternal Grandfather of old age - Psychiatry Paternal Uncle suicide Patient Allergies ALLERGIES No Known Allergies Current Medications Current Outpatient Medications on File Prior to Visit Medication Sig - sertraline (ZOLOFT) 50 mg tablet Take 1 tablet by mouth once daily. (Patient not taking: Reported on 07/13/2021 ) No current facility-administered medications on file prior to visit. Social History Social History Tobacco Use - Smoking status: Never Smoker - Smokeless tobacco: Never Used Substance Use Topics - Alcohol use: Yes Comment: occasional - Drug use: (more content not included)... [facility] 07-13-2021 Miscellaneous Notes Images from the original note were not included. BEHAVIORAL HEALTH SOCIAL WORK CONSULT NOTE Service Date: July 13, 2021 Patient was identified by name and Patient: Que Key [address] [place] [address] (home) [phone] (cell) PCP: Walter Little MD [address] [place] [address] Patient identified for [facility] from: PCP Reason for referral: Resources [facility] encounter type: MyChart Message Attempts to Outreach: 3 Referral made: Psychology - External; Psychiatry - External Final Disposition: Resources given [place]-SUICIDE SEVERITY RATING SCALE Screen Version - Recent Past month Ask questions that are bolded and underlined. YES/NO Ask Questions 1 and 2 1) Have you wished you were or wished you could go to sleep and not wake up? 2) Have you actually had any thoughts of killing yourself? If YES to 2, ask questions 3, 4, 5, and 6. If NO to 2, go directly to question 6. 3) Have you been thinking about how you might do this? E.g. I thought about taking an overdose but I never made a specific plan as to when where or how I would actually do it .and I would never go through with it. 4) Have you had these thoughts and had some intention of acting on them? As opposed to I have the thoughts but I definitely will not do anything about them. 5) Have you started to work out or worked out the details of how to kill yourself? Do you intend to carry out this plan? 6) Have you ever done anything, started to do anything, or prepared to do anything to end your life? Examples: Collected pills, obtained a gun, gave away valuables, wrote a will or suicide note, took out pills but didn't swallow any, held a gun but changed your mind or it was grabbed from your hand, went to the roof but didn't jump; or actually took pills, tried to shoot yourself, cut yourself, tried to hang yourself, etc. If YES, ask: Was this within the past three months? YES/NO Low Risk Moderate Risk High Risk Patient identified for [facility] from: PCP Reason for referral: Resources Behavioral Health Resources: Psychology - talk therapy;Psychiatry med management [facility] encounter type: MyChart Message Assessment: Spoke with pt at length. Pt states has had SI in teens and in 's done well on Zoloft but reported almost euphoric like feeling eventually then taking self off in April, now presenting to PCP with SI, thoughts to shoot self, but no access to gun, no actual plan or intent, family and supportive. Pt was actually going [facility] to [facility] . 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 However was a bit unfamiliar with the process. CSSRS screen was completed low risk. Good support, close follow up with PCP in next week, currently getting assessment done with [facility]. SW provided supportive listening and education. Advised on mychart to be sent with additional resources. Medications: Current Outpatient Medications on File Prior to Visit Medication Sig sertraline (ZOLOFT) 50 mg tablet Take 1 tablet by mouth once daily. (Patient not taking: Reported on 07/13/2021 ) No current facility-administered medications on file prior to visit. Curbside: No Screening Tools: No Substance Use / Abuse: No Outcome / Plan / Referrals: Attempts to Outreach: 3 attempts Referral made: Psychology - External;Psychiatry - External Psychology-External referral type: Therapy Psychiatry-External referral type: Medication Management Reason for external referral: Patient seeking moth exterminator support Final Disposition: Resources given Patient Discharged?: Yes Internal Referrals : Yes -Patient advised of [facility] available [facility]. Patient was informed that they will be moving on for further evaluation if seeking treatment within the [facility] system. Reason for External Referrals : Wait is too long and Location Intervention: Supportive Counseling Supportive Listening Education Pt was walking into crisis assessment with [facility] Resources Provided: Medication Management Talk Therapy Community Resources Time Spent: 31 minutes to 1 hour ROBLES Leon documented in this encounter [facility] 07-13-2021 Miscellaneous Notes Behavioral Health Social Work Progress Note Patient identified for [facility] from: PCP Reason for referral: Resources Behavioral Health Resources: Psychology - talk therapy;Psychiatry med management [facility] encounter type: Telephone Encounter Attempts to Outreach: 1 attempt Referral made: Psychology - External;Psychiatry - External Psychology-External referral type: Therapy Psychiatry-External referral type: Medication Management Reason for external referral: Patient seeking jail support Final Disposition: Resources given Patient Discharged?: Yes Patient reported that caregiver was able to meet their needs today?: Yes [facility] referral/consult placed for urgent with passive SI, left detailed vmx re consult placed, CB# [phone] provided. Will await call back, if no call back with in [facility] follow up time frame (1-2 weeks) will send [place] message/mail out letter with resources. ROBLES Leon July 13, 2021 documented in this encounter [facility] Evaluation note Diagnosis Annual physical exam- Primary Routine general medical examination at a health care facility LAKEISHA (generalized anxiety disorder) Generalized anxiety disorder Severe episode of recurrent major depressive disorder, without psychotic features (HCC) Suicidal ideations Suicidal ideation Screening for HIV (human immunodeficiency virus) Special screening examination for other specified viral diseases Encounter for hepatitis C screening test for low risk patient Epidermoid cyst of skin of back [facility] Epidermoid cyst of skin of back documented in this encounter [facility] Reason for Referral Specialty Diagnoses / Procedures Referred By Dima mtz Referred To Contact General Surgery Diagnoses Epidermoid cyst of skin of back Procedures CONSULT TO GENERAL SURGERY OFFICE/OUTPATIENT [facility] 60-74 MINUTES Walter Little MD [address] [place] [address] Referral ID Status Reason Start Date Expiration Date Visits Requested Visits Authorized [id number] Authorized PCP Requested Referral 11/07/2021 11/07/2022 1 1 Summary Purpose Family History No Family History Records Found Advance Directives No Advanced Directives Records Found Additional Source Comments Source Comments (unrecognize d section and content) In the event this informatio n is protected by the Federal Confidentiality of Alcohol and Drug Abuse Patient Records regulations: The Federal rules restrict any use of the information to criminally investigate or prosecute any alcohol or drug abuse patient.[facility] the event this information is protected by the Federal Confidentiality of Alcohol and Drug Abuse Patient Records regulations: The Federal rules restrict any use of the information to criminally investigate or prosecute any alcohol or drug abuse patient.[facility] the event this information is protected by the Federal Confidentiality of Alcohol and Drug Abuse Patient Records regulations: The Federal rules restrict any use of the information to criminally investigate or prosecute any alcohol or drug abuse patient.[facility] the event this information is protected by the Federal Confidentiality of Alcohol and Drug Abuse Patient Records regulations: The Federal rules restrict any use of the information to criminally investigate or prosecute any alcohol or drug abuse patient.[facility] the event this information is protected by the Federal Confidentiality of Alcohol and Drug Abuse Patient Records regulations: The Federal rules restrict any use of the information to criminally investigate or prosecute any alcohol or drug abuse patient.[facility] the event this information is protected by the Federal Confidentiality of Alcohol and Drug Abuse Patient Records regulations: The Federal rules restrict any use of the information to criminally investigate or prosecute any alcohol or drug abuse patient.[facility] the event this information is protected by the Federal Confidentiality of Alcohol and Drug Abuse Patient Records regulations: The Federal rules restrict any use of the information to criminally investigate or prosecute any alcohol or drug abuse patient.[facility] the event this information is protected by the Federal Confidentiality of Alcohol and Drug Abuse Patient Records regulations: The Federal rules restrict any use of the information to criminally investigate or prosecute any alcohol or drug abuse patient.[facility] Reason for Visit (unrecogniz ed section and content) Reason Comments Other Reason Comments patient outreach Reason Comments Physical Reason Comments Consult Cyst on back Specialty Diagnoses / Procedures Referred By Dima mtz Referred To Contact General Surgery Diagnoses Epidermoid cyst of skin of back Procedures CONSULT TO GENERAL SURGERY OFFICE/OUTPATIENT [facility] 60-74 MINUTES Walter Little MD [address] [place] [address] Referral ID Status Reason Start Date Expiration Date V isits Requested Visits Authorized [id number] Closed PCP Requested Referral 11/07/2021 11/07/2022 1 1 Reason Comments Patient Update Patient will need to return for CMP to be drawn. Missed at 11/07/21 draw. HIV was also missed but was advised that one could be added on. Care Teams (unrecognized sec tion and content) [employer] Relationship Specialty Start Date End Date Walter Little MD [address] [place] [address] PCP - General Family Practice 04/07/19 [employer] Relationship Specialty Start Date End Date Walter Little MD [address], [place] [id number] PCP - General Family Practice 04/07/19 [employer] Relationship Specialty Start Date End Date Walter Little MD [address] [facility], [place] [id number] PCP - General Family Practice 04/07/19 [employer] Relationship Specialty Start Date End Date Walter Little MD [address] [facility] [place] [address] PCP - General Family Practice 04/07/19 [employer] Relationship Specialty Start Date End Date Walter Little MD [address] [facility] [place] [address] PCP - General Family Practice 04/07/19 [employer] Relationship Specialty Start Date End Date Walter Little MD [address] [facility] [place] [address] PCP - General [facility] 04/07/19 [employer] Relationship Specialty Start Date End Date Walter Little MD [address] [facility], [place] [id number] PCP - General Family Medicine 04/07/19 (unrecognized sect ion and content) No Status Records Found INFORMATION SOURCE (unrecogn ized section and content) DATE CREATED AUTHOR 12/13/2021 [facility] FOR RECORDS PERTAINING TO PATIENTS WHO ARE OR HAVE BEEN ENROLLED IN A CHEMICAL DEPENDENCY/SUBSTANCEABUSE PROGRAM, SOME INFORMATION MAY BE OMITTED. This clinical summary was aggregated from multiple sources. Caution should be exercised in using it in the provision of clinical care. This summary normalizes information from multiple sources, and as a consequence, information in this document may materially change the coding, format and clinical context of patient data. In addition, data may be omitted in some cases. CLINICAL DECISIONS SHOULD BE BASED ON THE PRIMARY CLINICAL RECORDS. [email or web address] provides no warranty or guarantee of the accuracy or completeness of information in this document.
[2024-10-18 02:29] LABS: Lipase 57 U/L (13-75)
[2024-10-18 02:46] LABS: AST(SGOT) 57 U/L (<=37); Alanine Aminotransfer ALT/SGPT 40 U/L (<=46); Albumin, Serum 4.1 g/dL (3.5-5.0); Alkaline Phosphatase 67 U/L (40-129); Anion Gap 12 (5-15); BUN 27 mg/dL (4-19); BUN/Creat Ratio 23.1 RATIO (10-20); Bilirubin, Direct 0.23 mg/dL (0.00-0.30); Calcium,Total 9.5 mg/dL (7.6-11.0); Carbon Dioxide 25.4 mmol/L (21.0-32.0); Chloride 105 mmol/L (98-108); Estimated Creatinine Clearance 84.63 ml/min (50-250); Globulin 2.7 g/dL (2.2-4.2); Glucose 111 mg/dL (70-99); Potassium 3.6 mmol/L (3.3-5.1)
[2024-10-18 03:00] VITALS: BP 110/63; PULSE 42; RESP 22; O2SAT 97
[2024-10-18 03:02] LABS: Troponin T High Sensitivity < 6 ng/L (<=22)
--- NOTE | 2024-10-18 03:15 | EX.ED.DYSGE1 ---
HPI History of Present Illness Chief Complaint: Chest Other Informant: patient and spouse/S.O. Narrative Narrative: Patient is a 39-year-old male who reports no significant past medical history. He states he went to bed feeling normal and then awoke roughly 1 to 2 hours prior to arrival. He states he awoke secondary to discomfort/pain that began in the upper abdomen and radiated up into his chest. He describes the pain as more of a pressure sensation. He states there is no associated nausea vomiting diaphoresis or shortness of breath. He denies any recent trauma or sick symptoms. He denies any recent travel surgery or history of DVT/PE. He he states there is no family history of cardiac disease. He reports that he runs roughly 16 miles every single day. He states that the pain was not resolving and as it was moving into his chest he had concerned this could be cardiac in nature. He states that upon arrival to the ER the pain has spontaneously resolved. PFSH PFS Medical History no medical history Home Medications ?Medication ?Instructions ?Recorded ?Last Taken ?Type sertraline 50 mg tablet 50 mg PO DAILY 10/18/24 Unknown History Allergy/AdvReac Type Severity Reaction Status Date / Time No Known Allergies Allergy Verified 10/18/24 00:48 Social History Smoking Status: Never smoker [facility] ED Constitutional Constitutional ED: Denies chills or fever(s) Eyes Eyes: Denies change in vision ENT ENT ED: Denies sore throat Cardiovascular Cardiovascular: Reports chest pain; Denies palpitations or racing heartbeat Respiratory/Chest Respiratory/Chest: Denies cough or dyspnea Gastrointestinal Gastrointestinal: Reports abdominal pain; Denies diarrhea, nausea or vomiting Musculoskeletal Musculoskeletal: Denies back pain Integumentary Denies rash Neurologic Neurologic: Denies headache(s) Hematologic/Lymphatic Hematologic/Lymphatic: Denies easy bleeding or easy bruising EXAM Physical Exam Const Vital Signs: 10/18/24 00:44 10/18/24 01:35 10/18/24 01:43 Temperature 98.1 F Temperature Source Oral Pulse Rate 47 L 45 L Respiratory Rate 19 H 15 Respiratory Effort Normal Non-Labored Blood Pressure 116/77 113/74 Blood Pressure Mean 90 87 Pulse Ox 100 97 Oxygen Delivery Method Room Air Room Air 10/18/24 02:00 10/18/24 03:00 10/18/24 03:23 Temperature 98.1 F Temperature Source Pulse Rate 47 L 42 L 48 L Respiratory Rate 15 22 H 16 Respiratory Effort Blood Pressure 110/76 110/63 112/72 Blood Pressure Mean 87 78 85 Pulse Ox 97 97 98 Oxygen Delivery Method Room Air Room Air Positive well nourished and well developed General Appearance ED: well developed; Negative for pallor HEENT HEENT Narrative: Normocephalic atraumatic No tongue or lip swelling no oral lesions no airway edema or compromise. No secondary findings in the posterior pharynx to suggest infection Eyes PERRL and EOMs intact bilaterally General Eye ED: Negative for scleral icterus Neck supple and no JVD Chest Wall palpation of chest normal Chest Narrative: No bony deformity or subcutaneous emphysema noted Resp normal respiratory effort and clear to auscultation bilaterally Cardio regular rhythm Rate: bradycardia and other Other Details: Bradycardic rate with regular rhythm. No murmurs rubs or gallops. Radial and carotid pulses are equal and symmetric. No JVD. No carotid bruit GI non-distended and no masses GI Narrative: Abdomen is soft and nondistended with normal active bowel sounds. There is pain with palpation in the midepigastric region and right upper quadrant without voluntary guarding or rigidity. Negative Birch sign. No pulsatile mass Auscultation: normoactive bowel sounds Palpation: soft Back/Spine no CVA tenderness Extremity normal to inspection Extremity Narrative: No asymmetric edema no pitting edema negative Homans' sign bilaterally Neuro oriented x3, CN's II-XII intact bilaterally and no sensory deficits noted Sensorium / Orientation: alert Motor Exam: strength 5/5 throughout Psych mental status grossly normal Skin no rashes or lesions noted and no wounds General Skin Exam: Negative for jaundice or pallor MDM MDM MDM Narrative Medical decision making narrative: Patient arrived to the ER bradycardic but reports that he runs daily and a low heart rate is his normal. He also reported spontaneous resolution of his discomfort upon arrival to the ER. He states the pain began in the upper abdomen and radiated into the chest. There was concern this could be biliary colic versus acute cholecystitis versus pancreatitis versus lung pathology such as pneumonia or pneumothorax or potentially acute coronary syndrome or cardiac dysrhythmia. EKG reveals sinus bradycardia without ischemic findings. Patient was kept on the monitor for his workup and there was no cardiac dysrhythmia noted. Chest x-ray revealed no acute lung pathology. His troponin was less than 6 going against ACS. As he had pain that was constant for 1 to 2 hours with a normal troponin and he had spontaneous resolution of his chest pain and did not feel the need for a delta troponin. With concern for pancreatitis versus biliary colic or acute cholecystitis lipase and liver enzymes were obtained. Lipase was normal going against pancreatitis and liver enzymes were also normal going against a biliary issue. The patient did have an elevated white blood cell count but he has no sick symptoms and he is afebrile and normotensive. I feel this is most likely stress response. As he does have pain in the midepigastric/right upper quadrant region I do feel that he should get a ultrasound of his gallbladder to assess for potential gallstones or acute cholecystitis. However as his vitals are stable and his pain has spontaneous resolved and not returned I do not feel this needs to be done emergently. Therefore he will be given an outpatient order form for a ultrasound but as overall workup is negative and vitals are stable and he has had resolution of his symptoms he will be discharged home History & Record Review Discussion w/independent historian: Patient and Significant other Lab Data Attestation: I reviewed the patient's lab results. Labs: Laboratory Results - last 24 hr 10/18/24 01:12 WBC 16.0 H RBC 4.75 Hgb 14.1 Hct 41.6 MCV 87.6 MCH 29.7 MCHC 33.9 RDW Std Deviation 41.8 RDW Coeff of Maru 12.9 Plt Count 191 MPV 8.9 Immature Gran % (Auto) 0.600 Neut % (Auto) 78.4 H Lymph % (Auto) 13.4 L [place] % (Auto) 5.9 Eos % (Auto) 1.4 Baso % (Auto) 0.3 Absolute Neuts (auto) 12.5 H Absolute Lymphs (auto) 2.14 Nucleated RBC % 0 Sodium 142 Potassium 3.6 Chloride 105 Carbon Dioxide 25.4 Anion Gap 12 BUN 27 H Creatinine 1.18 Estim Creat Clear Calc 84.63 Est GFR (MDRD) Non-Af 80 BUN/Creatinine Ratio 23.1 H Glucose 111 H Calcium 9.5 Total Bilirubin 0.51 Direct Bilirubin 0.23 AST 57 H ALT 40 Alkaline Phosphatase 67 Troponin T High Sens < 6 Total Protein 6.8 Albumin 4.1 Globulin 2.7 Lipase 57 Radiography Diagnostic Testing: Clinical Impression(s) from Imaging Studies Chest X-Ray 10/18/24 01:20 IMPRESSION: No acute chest findings. Reading Location: [place] [id number] Chest x-ray as interpreted by the emergency medicine physician reveals no acute infiltrate pneumothorax or pleural effusion Discharge Plan Triage Chief Complaint: Chest Other ED Provider: Jhony Liz Dx/Rx/DC Orders Clinical Impression: Nonspecific chest pain, Right upper quadrant abdominal pain, Sinus bradycardia Instructions: Abdominal Pain, ED Chest Pain, Uncertain Cause Prescriptions: No Action sertraline 50 mg tablet 50 mg PO DAILY Other Ambulatory Orders: Gallbladder (Routine) Facility: [facility] [place] - Location: [facility] Ordered By: Dr. Jhony Liz Primary Care Provider: Alexx Love Referrals: Alexx Love MD [Primary Care Provider] - Activity Restrictions/Additional Instructions: Please obtain your ultrasound of the gallbladder as an outpatient to rule out gallstones or gallbladder infection as a cause of your pain. However if you develop a fever or have worsening pain prior to obtaining this then return to the ER for repeat evaluation. Your workup today did not show any sign of active heart damage Print Language: Swazi Disposition Disposition: Home, Self Care Discharge Date/Time: 10/18/24 03:28
[2024-10-18 03:23] VITALS: BP 112/72; PULSE 48; RESP 16; TEMP 36.7; O2SAT 98
== END 2024-10-18 03:28 | disposition home or self-care (01) ==
PROVIDERS: Emergency Provider Emergency Medicine; PCP Family Medicine; Visit Provider Emergency Medicine
DX: R07.9 Chest pain, unspecified (principal); R00.1 Bradycardia, unspecified; R10.11 Right upper quadrant pain; Z79.899 Other long term (current) drug therapy
CPT/HCPCS: 71046; 80048; 80076; 83690; 84484; 85025; 93005; 96365; 99285; A4216

== ENCOUNTER → 2024-10-20 | Outpatient (CLI) | payer OTHER, SELFPAY ==
--- NOTE | 2024-10-20 07:31 | US_ITS ---
PROCEDURE: ABDOMEN LIMITED 10/20/2024 REASON FOR EXAM: RIGHT UPPER QUADRANT ABDOMINAL PAIN TECHNIQUE: ABDOMEN LIMITED COMPARISON: None FINDINGS: Liver: Liver is 17.5 cm in length and has a normal echotexture. Color and spectral Doppler shows hepatopetal portal vein. No mass is identified. Gallbladder: Negative sonographic Birch's sign. Gallbladder is hydropic with some sludge in the lumen. No calculi, wall thickening or pericholecystic fluid. Common bile duct: Normal measuring 4.2 mm. Pancreas: Normal Kidneys: The right kidney 11.1 x 6.5 x 4.8 cm. No collecting system dilation, calculus or mass. Peritoneal Findings: No free fluid US/Abdomen Limited IMPRESSION: 1. Gallbladder hydrops with some sludge. No calculi, wall thickening or peric holecystic fluid. Negative sonographic Birch's. No biliary ductal dilation. Reading Location: [id number]
--- OUTSIDE RECORDS SUMMARY | 2024-10-20 07:38 | XMS RPT_ITS | CCD ---
Author Organization [facility] Inform ion Partnership [facility] Care Team Providers Care Elementary Reading Specialist Name Role Phone Walter Little MD Primary Care Provider AWLTER LITTLE Referring Unavailab WALTER Forrest Primary Care Unavailab GIULIANA Weldon Attending Unavailable WALTER LITTLE Attending Unavailab WALTER Forrest Primary Care Unavailab WALTER Forrest Attending Unavailab WALTER Forrest Primary Care Unavailab WALTER Forrest Referring Unavailab WALTER Forrest Attending Unavailab WALTER Forrest Primary Care Unavailab WALTER Forrest Referring Unavailab WALTER Forrest Primary Care Unavailab Dr. Jhony Adorno DO Emergency Provider Dr. Alexx Love MD Primary Care Provider Jhony Liz Attending Alexx Jennings Primary Care Unavailable Jhony Liz Attending Jhony Fregoso Referring Unavailable Alexx Love Primary Care Unavailable Medications Current Medications Medication Drug Class(es) Dates Sig (Normalized) Sig (Original) sertraline 50 mg oral tablet (9 sources) Serotonin Reuptake Inhibitor Start: 10-18-2024 take 1 tablet by mouth once daily Sertraline 50 mg tablet Active 50 mg PO DAILY October 18, 2024 12:00am Start: 01-10-2021 take 1 tablet by leyda th once daily sertraline (ZOLOFT) 50 mg tablet Take 1 tablet by mouth once daily. 90 tablet 3 01/10/2021 Active Comment on above: Take 1 tablet by leyda th once daily. Completed/Discontinued Medications Medication Drug Class(es) Dates Sig (Normalized) Sig (Original) acetaminophen 325 mg / oxyCODONE hydrochloride 5 mg oral tablet (1 source) Opioid Agonist Start: 04-20-2014 End: 10-18-2024 Oxycodone-Acetamin ophen 1 TABLET tablet Discontinued 1 - 2 {tbl} PO EVERY 6 HOURS NEEDED as needed for Pain April 20, 2014 1:00am October 18, 2024 12:49am multivitamin tablet (4 sources) Start: 11-07-2021 take 1 tablet by mouth once daily multivitamin tablet Take 1 tablet by mouth once daily. 0 11/07/2021 Active Comment on above: Take 1 tablet by leyda th once daily. naproxen sodium 220 mg oral tablet (1 source) Nonsteroidal Anti-inflammatory Drug Start: 04-13-2014 End: 10-18-2024 take 1 tablet by mouth every twelve hours as needed for pain Naproxen Sodium (Aleve) 220 MG tablet Discontinued 220 mg PO EVERY 12 HOURS NEEDED as needed for Mild/Moderate Pain April 13, 2014 1:00am October 18, 2024 12:48am Problems Active Problems Problem Classification Problem Date Documented Date Episodic/Chronic Abdominal pain (2 sources) Right upper quadrant pain; Translations: [Right upper quadrant pain] Onset: 10-19-2024 10-18-2024 Episodic Adjustment disorders (8 sources) Adjustment disorder with [...] severe without psychotic features] Onset: 08-04-2021 Chronic Nonspecific chest pain (1 source) Chest pain; Translations: [Chest pain, unspecified] 10-18-2024 Episodic Other skin disorders (2 sources) Epidermoid cyst [...] Results Test Name Value Interpretation Reference Range Facility 12 Lead EKGon 10-18-2024 12 Lead EKG [facility] Cardiovascular Services [address] [place] [address] 12 Lead EKG 10/18/24 0053 MR#: [id number] Acct: [id number] Name: QUE KEY Rep #: [id number] : 1985 39 From: David Bob MD Attending Dr: Status: DEP ER Ordering Dr: Jhony Liz DO Date: 10/18/24 Location: ED Sex: M C Admitted: Test Reason : DYSRHYTHMIA Blood Pressure : */* mmHG Vent. Rate : 49 BPM Atrial Rate : 49 BPM P-R Int : 192 ms QRS Dur : 90 ms QT Int : 476 ms P-R-T Axes : 53 60 49 degrees QTcB Int : 429 ms Sinus bradycardia Septal infarct , age undetermined Abnormal ECG Confirmed by DAVID BOB MD ([id number]), digital editor MAX COTTON ([id number]) on 10/19/2024 1:13:39 PM Referred By: BLAKE Confirmed By: DAVID BOB MD 10/19/24 1313 Date David Bob MD CC: Dr. Alexx Love MD; Jhony Liz DO Signed Normal [facility] Absolute lymphocyte countOrd ered By: Jhony Liz on 10-18-2024 Lymphocytes Auto (Unsp spec) [#/Vol] 2.14 10*3/uL 0.83-4.51 [facility] Absolute neutrophil countOrd ered By: Jhony Liz on 10-18-2024 Neutrophils (Bld) [#/Vol] 12.5 10*3/uL High 2.0-7.7 [facility] Anion gap in Serum or Plasma Ordered By: Jhony Liz on 10-18-2024 Anion gap [Moles/Vol] 12 mmol/L 5-15 [facility] Automated lymphocyte count a s percentage of total leukocytesOrdered By: Jhony Liz on 10-18-2024 Lymphocytes/100 WBC Auto (Unsp spec) 13.4 % Low 19-41 [facility] BUN/creatinine ratioOrdered By: Jhony iLz on 10-18-2024 Urea nitrogen/Creatinine [Mass ratio] 23.1 mg/mg High 12-28 [facility] Basic Metabolic Profile (BMP )on 10-18-2024 BUN/CRE 23.1 RATIO High - [facility] Comment on above: Performed By: #### L 500.2500, L500.3400, L501.2450 #### [facility] Laboratory [address] [place], [address] Calcium [Mass/Vol] 9.5 mg/dL Normal 7.6-11.0 [facility] Comment on above: Performed By: #### L 500.2500, L500.3400, L501.2450 #### [facility] [address] [place], [address] Chloride [Moles/Vol] 105 mmol/L Normal 98-108 [facility] Comment on above: Performed By: #### L 500.2500, L500.3400, L501.2450 #### [facility] [address] [place], [address] CO2 [Moles/Vol] 25.4 mmol/L Normal 21.0-32.0 [facility] Comment on above: Performed By: #### L 500.2500, L500.3400, L501.2450 #### [facility] [address] [place], [address] Creatinine [Mass/Vol] 1.18 mg/dL Normal 0.70-1.20 [facility] Comment on above: Performed By: #### L 500.2500, L500.3400, L501.2450 #### [facility] [address] [place], [address] ECRCL 84.63 ml/min Normal 50-250 [facility] Comment on above: Performed By: #### L 500.2500, L500.3400, L501.2450 #### [facility] [address] [place], [address] GAP 12 Normal 5-15 [facility] Comment on above: Performed By: #### L 500.2500, L500.3400, L501.2450 #### [facility] [address] [place], [address] GFR/1.73 sq M.predicted among non-blacks MDRD (S/P/Bld) [Vol rate/Area] 80 mL/min/{1.73_m2} Normal >60 [facility] Comment on above: Result Comment: mL/m in/1.73m2 CKD-EPI Creatinine Equation (2020) Performed By: #### L 500.2500, L500.3400, L501.2450 #### [facility] [address] [place], [address] Glucose [Mass/Vol] 111 mg/dL High 70-99 [facility] Comment on above: Performed By: #### L 500.2500, L500.3400, L501.2450 #### [facility] [address] [place], [address] Potassium [Moles/Vol] 3.6 mmol/L Normal 3.3-5.1 [facility] Comment on above: Performed By: #### L 500.2500, L500.3400, L501.2450 #### [facility] [address] [place], [address] Sodium [Moles/Vol] 142 mmol/L Normal 133-145 [facility] Comment on above: Performed By: #### L 500.2500, L500.3400, L501.2450 #### [facility] [address] [place], [address] Urea nitrogen [Mass/Vol] 27 mg/dL High 4-19 [facility] Comment on above: Performed By: #### L 500.2500, L500.3400, L501.2450 #### [facility] [address] [place], [address] Basophil percentageOrdered B y: Jhony Liz on 10-18-2024 Basophils/100 WBC (Bld) 0.3 % 0-1 [facility] Bilirubin directOrdered By: Jhony Liz on 10-18-2024 Bilirubin.direct [Mass/Vol] 0.23 mg/dL 0.00-0.30 [facility] Bilirubin, totalOrdered By: Jhonynguyen Liz on 10-18-2024 Bilirubin [Mass/Vol] 0.51 mg/dL 0.00-1.30 [facility] CBC W/Diff, Automatedon 10-09 0-2024 Absolute Lymph 2.14 X10 3/uL Normal 0.83-4.51 [facility] Comment on above: Performed By: #### L 100.0100 #### [facility] [address] [place], [address] Absolute Neut 12.5 X10 3/uL High 2.0-7.7 [facility] Comment on above: Performed By: #### L 100.0100 #### [facility] [address] [place], [address] Basophils/100 WBC (Bld) 0.3 % Normal 0-1 [facility] Comment on above: Performed By: #### L 100.0100 #### [facility] [address] [place], [address] Eosinophils/100 WBC (Bld) 1.4 % Normal 0-5 [facility] Comment on above: Performed By: #### L 100.0100 #### [facility] [address] [place], [address] Erythrocyte distribution width (RBC) [Ratio] 12.9 % Normal 11.6-14.6 [facility] Comment on above: Performed By: #### L 100.0100 #### [facility] [address] [place], [address] Hematocrit (Bld) [Volume fraction] 41.6 % Normal 40-54 [facility] Comment on above: Performed By: #### L 100.0100 #### [facility] [address] [place], [address] Hemoglobin (Bld) [Mass/Vol] 14.1 g/dL Normal 13.0-16.5 [facility] Comment on above: Performed By: #### L 100.0100 #### [facility] [address] [place], [address] IG% 0.600 Normal 0.0-0.9 [facility] Comment on above: Result Comment: IG% - Immature Granulocytes (promyelocytes, myelocytes and metamyelocytes) > 1% indicates that a LEFT SHIFT is Present. Performed By: #### L 100.0100 #### [facility] [address] [place], [address] Lymphocytes/100 WBC (Bld) 13.4 % Low 19-41 [facility] Comment on above: Performed By: #### L 100.0100 #### [facility] [address] [place], [address] MCH (RBC) [Entitic mass] 29.7 pg Normal 27.0-32.0 [facility] Comment on above: Performed By: #### L 100.0100 #### [facility] [address] [place], [address] MCHC (RBC) [Mass/Vol] 33.9 g/dL Normal 32-36 [facility] Comment on above: Performed By: #### L 100.0100 #### [facility] [address] [place], [address] MCV (RBC) [Entitic vol] 87.6 fL Normal 80-94 [facility] Comment on above: Performed By: #### L 100.0100 #### [facility] [address] [place], [address] Monocytes/100 WBC (Bld) 5.9 % Normal 0-10 [facility] Comment on above: Performed By: #### L 100.0100 #### [facility] [address] [place], [address] Neutrophils/100 WBC (Bld) 78.4 % High 47-70 [facility] Comment on above: Performed By: #### L 100.0100 #### [facility] [address] [place], [address] Nucleated RBC (Bld) [#/Vol] 0 10*3/uL Normal 0-5 [facility] Comment on above: Performed By: #### L 100.0100 #### [facility] [address] [place], [address] Platelet mean volume (Bld) [Entitic vol] 8.9 fL Normal 6.2-12.0 [facility] Comment on above: Performed By: #### L 100.0100 #### [facility] [address] [place], [address] Platelets (Bld) [#/Vol] 191 10*3/uL Normal 150-450 [facility] Comment on above: Performed By: #### L 100.0100 #### [facility] [address] [place], [address] RBC (Bld) [#/Vol] 4.75 10*6/uL Normal 4.6-6.2 [facility] Comment on above: Performed By: #### L 100.0100 #### [facility] [address] [place], [address] RDW SD 41.8 fl Normal 35.1-43.9 [facility] Comment on above: Performed By: #### L 100.0100 #### [facility] [address] [facility] [place], [address] WBC (Bld) [#/Vol] 16.0 10*3/uL High 4.4-11.0 [facility] Comment on above: Performed By: #### L 100.0100 #### [facility] [address] [place], [address] Carbon dioxide, total [Moles /volume] in Central venous bloodOrdered By: Jhony Liz on 10-18-2024 CO2 [Moles/Vol] 25.4 mmol/L 21.0-32.0 [facility] Chest PA and Lateralon 10-18 Chest PA and Lateral [facility] Imaging Services [address] [place] [address] Chest PA and Lateral MR#: [id number] Acct: [id number] Name: QUE KYE Rep #: [id number] : 1985 M 39 From: Jose Ricci MD PCP: Care Physician,No Primary Status: PRE ER Study: Chest PA and Lateral Date of Exam: 10/18/24 Exam# [id number] Ordering Dr: Jhony Liz DO PROCEDURE: CHEST PA AND LATERAL 10/18/2024 REASON FOR EXAM: CHEST PAIN TECHNIQUE: CHEST PA AND LATERAL COMPARISON: No FINDINGS: Normal heart size. Well inflated lungs. No consolidation, effusion, or pneumothorax. RAD/Chest PA and Lateral IMPRESSION: No acute chest findings. Reading Location: RAD-RICCI-2 CC: Jhony Liz DO; No Primary Care Physician Securities Compliance Examiner: Signed Normal [facility] Chloride assayOrdered By: Jennifer Liz on 10-18-2024 Chloride [Moles/Vol] 105 mmol/L 98-108 [facility] Emergency Department Summary on 10-18-2024 Emergency Department Summary [facility] Medical Records Department [address] [place] [address] Emergency Department Summary 10/18/24 MR#: [id number] Acct: [id number] Name: QUE KEY Rep #: [id number] : 1985 39 From: Jhony Liz DO PCP: Dr. Alexx Love MD Status:DEP ER Location: ED HPI History of Present Illness Chief Complaint: Chest Other Informant: patient and spouse/S.O. Narrative Narrative: Patient is a 39-year-old male who reports no significant past medical history. He states he went to bed feeling normal and then awoke roughly 1 to 2 hours prior to arrival. He states he awoke secondary to discomfort/pain that began in the upper abdomen and radiated up into his chest. He describes the pain as more of a pressure sensation. He states there is no associated nausea vomiting diaphoresis or shortness of breath. He denies any recent trauma or sick symptoms. He denies any recent travel surgery or history of DVT/PE. He he states there is no family history of cardiac disease. He reports that he runs roughly 16 miles every single day. He states that the pain was not resolving and as it was moving into his chest he had concerned this could be cardiac in nature. He states that upon arrival to the ER the pain has spontaneously resolved. [facility] Medical History no medical history Home Medications ???Medication ???Instructions ???Recorded ???Last Taken ???Type sertraline 50 mg tablet 50 mg PO DAILY 10/18/24 Unknown Hi story Allergy/AdvReac Type Severity Reaction Status Date / Time No Known Allergies Allergy Verified 10/18/24 00:48 Social History Smoking Status: Never smoker ROS ROS ED Constitutional Constitutional ED: Denies chills or fever(s) Eyes Eyes: Denies change in vision ENT ENT ED: Denies sore throat Cardiovascular Cardiovascular: Reports chest pain; Denies palpitations or racing heartbeat Respiratory/Chest Respiratory/Chest: Denies cough or dyspnea Gastrointestinal Gastrointestinal: Reports abdominal pain; Denies diarrhea, nausea or vomiting Musculoskeletal Musculoskeletal: Denies back pain Integumentary Denies rash Neurologic Neurologic: Denies headache(s) Hematologic/Lymphati c Hematologic/Lymphati c: Denies easy bleeding or easy bruising EXAM Physical Exam Const Vital Signs: 10/18/24 00:44 10/18/24 01:35 10/18/24 01:43 Temperature 98.1 F Temperature Source Oral Pulse Rate 47 L 45 L Respiratory Rate 19 H 15 Respiratory Effort Normal Non-Labored Blood Pressure 116/77 113/74 Blood Pressure Mean 90 87 Pulse Ox 100 97 Oxygen Delivery Method Room Air Room Air 10/18/24 02:00 10/18/24 03:00 10/18/24 03:23 Temperature 98.1 F Temperature Source Pulse Rate 47 L 42 L 48 L Respiratory Rate 15 22 H 16 Respiratory Effort Blood Pressure 110/76 110/63 112/72 Blood Pressure Mean 87 78 85 Pulse Ox 97 97 98 Oxygen Delivery Method Room Air Room Air Positive well nourished and well developed General Appearance ED: well developed; Negative for pallor HEENT HEENT Narrative: Normocephalic atraumatic No tongue or lip swelling no oral lesions no airway edema or compromise. No secondary findings in the posterior pharynx to suggest infection Eyes PERRL and EOMs intact bilaterally General Eye ED: Negative for scleral icterus Neck supple and no JVD Chest Wall palpation of chest normal Chest Narrative: No bony deformity or subcutaneous emphysema noted Resp normal respiratory effort and clear to auscultation bilaterally Cardio regular rhythm Rate: bradycardia and other Other Details: Bradycardic rate with regular rhythm. No murmurs rubs or gallops. Radial and carotid pulses are equal and symmetric. No JVD. No carotid bruit GI non-distended and no masses GI Narrative: Abdomen is soft and nondistended with normal active bowel sounds. There is pain with palpation in the midepigastric region and right upper quadrant without voluntary guarding or rigidity. Negative Birch sign. No pulsatile mass Auscultation: normoactive bowel sounds Palpation: soft Back/Spine no CVA tenderness Extremity normal to inspection Extremity Narrative: No asymmetric edema no pitting edema negative Homans' sign bilaterally Neuro oriented x3, CN's II-XII intact bilaterally and no sensory deficits noted Sensorium / Orientation: alert Motor Exam: strength 5/5 throughout Psych mental status grossly normal Skin no rashes or lesions noted and no wounds General Skin Exam: Negative for jaundice or pallor MDM MDM MDM Narrative Medical decision making narrative: Patient arrived to the ER bradycardic but reports that he runs daily and a low heart rate is his normal. He also reported spontaneous resolution of his discomfort upon arrival to the ER. He s (more content not included)... Normal [facility] Eosinophil percentageOrdered By: Jhony Liz on 10-18-2024 Eosinophils/100 WBC (Bld) 1.4 % 0-5 [facility] Erythrocyte distribution wid th ratioOrdered By: Jhony Liz on 10-18-2024 Erythrocyte distribution width (RBC) [Ratio] 12.9 % 11.6-14.6 [facility] Erythrocyte distribution wid th standard deviationOrdered By: Jhony Liz on 10-18-2024 Erythrocyte distribution width (RBC) [Ratio] 41.8 fl 35.1-43.9 [facility] Glomerular filtration rate ( GFR) estimation/1.73 sq m using serum, plasma, or whole bOrdered By: Jhony Liz on 10-18-2024 GFR/1.73 sq M.predicted among non-blacks MDRD (S/P/Bld) [Vol rate/Area] 80 mL/min/{1.73_m2} >60 [facility] Comment on above: mL/min/1.73m2 CKD-EP I Creatinine Equation (2020) Hematocrit Auto (Bld) [Volum e fraction]Ordered By: Jhony Liz on 10-18-2024 Hematocrit (Bld) [Volume fraction] 41.6 % 40-54 [facility] Hemoglobin measurementOrdere d By: Jhony Liz on 10-18-2024 Hemoglobin (Bld) [Mass/Vol] 14.1 g/dL 13.0-16.5 [facility] Immature granulocytes/100 WB C Auto (Bld)Ordered By: Jhony Liz on 10-18-2024 Immature granulocytes/100 WBC (Bld) 0.600 % 0.0-0.9 [facility] Comment on above: IG% - Immature Granu locytes (promyelocytes, myelocytes and metamyelocytes) > 1% indicates that a LEFT SHIFT is Present. L501.4021on 10-18-2024 Trop T High Sen < 6 Normal <=22 [facility] Comment on above: Performed By: #### L 501.4021 #### [facility] [address] [place], [address] Laboratory - Chemistry and C hemistry - challengeOrdered By: Jhony Liz on 10-18-2024 AST [Catalytic activity/Vol] 57 U/L High <38 [facility] Lipaseon 10-18-2024 Lipase [Catalytic activity/Vol] 57 U/L Normal 13-75 [facility] Comment on above: Result Comment: Bindu roblero note: LIPASE revised reference range effective 22. New Lipase methodology. Expected to produce lower values than the previous assay method. NEW Reference Range: 13 - 75 U/L Performed By: #### L 500.2500, L500.3400, L501.2450 #### [facility] [address] [place], [address] Lipase measurementOrdered By : Jhony Liz on 10-18-2024 Lipase [Catalytic activity/Vol] 57 U/L 13-75 [facility] Comment on above: Please note:LIPASE r evised reference range effective 22. New Lipase methodology. Expected to produce lower values than the previous assay method. NEW Reference Range: 13 - 75 U/L Liver Profileon 10-18-2024 Albumin [Mass/Vol] 4.1 g/dL Normal 3.5-5.0 [facility] Comment on above: Performed By: #### L 500.2500, L500.3400, L501.2450 #### [facility] [address] [place], [address] ALK PHOS 67 U/L Normal 40-129 [facility] Comment on above: Performed By: #### L 500.2500, L500.3400, L501.2450 #### [facility] [address] [place], [address] ALT [Catalytic activity/Vol] 40 U/L Normal <=46 [facility] Comment on above: Performed By: #### L 500.2500, L500.3400, L501.2450 #### [facility] [address] [place], [address] AST [Catalytic activity/Vol] 57 U/L High <=37 [facility] Comment on above: Performed By: #### L 500.2500, L500.3400, L501.2450 #### [facility] [address] [place], [address] Bilirubin [Mass/Vol] 0.51 mg/dL Normal 0.00-1.30 [facility] Comment on above: Performed By: #### L 500.2500, L500.3400, L501.2450 #### [facility] [address] [place], [address] Bilirubin.direct [Mass/Vol] 0.23 mg/dL Normal 0.00-0.30 [facility] Comment on above: Performed By: #### L 500.2500, L500.3400, L501.2450 #### [facility] [address] [place], [address] Globulin (S) [Mass/Vol] 2.7 g/dL Normal 2.2-4.2 [facility] Comment on above: Performed By: #### L 500.2500, L500.3400, L501.2450 #### [facility] [address] [place], [address] T PROT 6.8 g/dL Normal 5.9-8.4 [facility] Comment on above: Performed By: #### L 500.2500, L500.3400, L501.2450 #### [facility] [address] [place], [address] MCV (mean corpuscular volume ) determinationOrdered By: Jhony Liz on 10-18-2024 MCV (RBC) [Entitic vol] 87.6 fL 80-94 [facility] Mean corpuscular hemoglobin (MCH) determinationOrdered By: Jhony Liz on 10-18-2024 MCH (RBC) [Entitic mass] 29.7 pg 27.0-32.0 [facility] Mean corpuscular hemoglobin concentration (MCHC) determinationOrdered By: Jhony Liz on 10-18-2024 MCHC (RBC) [Mass/Vol] 33.9 g/dL 32-36 [facility] Mean platelet volume determi nationOrdered By: Jhony Liz on 10-18-2024 Platelet mean volume (Bld) [Entitic vol] 8.9 fL 6.2-12.0 [facility] Monocyte percentageOrdered B y: Jhony Liz on 10-18-2024 Monocytes/100 WBC (Bld) 5.9 % 0-10 [facility] Neutrophil percentageOrdered By: Jhony Liz on 10-18-2024 Neutrophils/100 WBC (Bld) 78.4 % High 47-70 [facility] Nucleated red blood cell per centageOrdered By: Jhnoy Liz on 10-18-2024 Nucleated RBC/100 WBC (Bld) [Ratio] 0 % 0-5 [facility] Platelet countOrdered By: Jennifer Liz on 10-18-2024 Platelets (Bld) [#/Vol] 191 10*3/uL 150-450 [facility] Potassium measurement (mass/ volume)Ordered By: Jhony Liz on 10-18-2024 Potassium (Unsp spec) [Mass/Vol] 3.6 mmol/L 3.3-5.1 [facility] RBC Auto (Bld) [#/Vol]Ordere d By: Jhony Liz on 10-18-2024 RBC (Bld) [#/Vol] 4.75 10*6/uL 4.6-6.2 [facility] Serum creatinine measurement (mass/volume)Ordered By: Jhony Liz on 10-18-2024 Creatinine [Mass/Vol] 1.18 mg/dL 0.70-1.20 [facility] Serum globulin measurementOr dered By: Jhony Liz on 10-18-2024 Globulin (S) [Mass/Vol] 2.7 g/dL 2.2-4.2 [facility] Serum glucose measurement (m ass/volume)Ordered By: Jhony Liz on 10-18-2024 Glucose [Mass/Vol] 111 mg/dL High 70-99 [facility] Serum or plasma alanine headley otransferase (ALT) measurementOrdered By: Jhony Liz on 10-18-2024 ALT [Catalytic activity/Vol] 40 U/L <47 [facility] Serum or plasma albumin mateus urement (mass/volume)Ordered By: Jhony Liz on 10-18-2024 Albumin [Mass/Vol] 4.1 g/dL 3.5-5.0 [facility] Serum or plasma alkaline ledy sphatase measurementOrdered By: Jhony Liz on 10-18-2024 ALP [Catalytic activity/Vol] 67 U/L 40-129 [facility] Serum or plasma calcium mateus urement (mass/volume)Ordered By: Jhony Liz on 10-18-2024 Calcium [Mass/Vol] 9.5 mg/dL 7.6-11.0 [facility] Serum or plasma urea nitroge n measurement (mass/volume)Ordered By: Jhony Liz on 10-18-2024 Urea nitrogen [Mass/Vol] 27 mg/dL High 4-19 [facility] Sodium levelOrdered By: Sunday Liz on 10-18-2024 Sodium [Moles/Vol] 142 mmol/L 133-145 [facility] Total proteinOrdered By: Mike Liz on 10-18-2024 Protein [Mass/Vol] 6.8 g/dL 5.9-8.4 [facility] Troponin T HS 2 HRon 025 Trop T High Sen Normal <=22 [facility] Comment on above: Result Comment: Nic chapin via OM: Ordered Performed By: #### L [id number] #### [facility] [address] [place], [address] Troponin T.cardiac [Mass/vol ume] in Serum or Plasma by High sensitivity methodOrdered By: Jhony Liz on 10-18-2024 Troponin T.cardiac High sensitivity method [Mass/Vol] < 6 ng/L <22 [facility] White blood cell (WBC) count Ordered By: Jhony Liz on 10-18-2024 WBC (Bld) [#/Vol] 16.0 10*3/uL [facility] (SWS[facility] [place] ([id number]) 1985 M Date Time Provider Department 11/15/21 4:00 PM GIULIANA VIDAL During your visit today, we recorded the following information about you: Temperature Pulse Blood pressure Weight 97.5 degrees 57/minute 122/68 78.5 kg Height 1.778 m Mariposa MariscalDIONY 11/15/2021 3:57 PM Signed REVIEW OF SYSTEMS: [...] Neurologic: The patient denies a history of epilepsy/convulsions , notes headaches, denies head/spinal injuries, and denies [...] pressure,denies cardiac (more content not included)... Normal [facility] Peng 11-15-2021 CORBY Telephone (PIPPA) [place] ([id number]) 1985 M Date Time Provider Department 11/15/21 MADINA MARTINEZ During your visit today, we recorded the following information about you: Madina Martinez APRN.MARY ANN 11/15/2021 10:33 AM Signed I do not see how I can delete the HIV test. He will need to tell lab he does not want to have this completed. Hepatitis C screening showing antibodies to hepatitis C but no viral load meaning he was exposed at some time but he has cleared it. The rest of his blood work is within acceptable limits. Madina Martinez APRN.MARY ANN Canada LPN 11/15/2021 10:48 AM Signed Patient notified of message below. Voices understanding. Antonio Canada LPN Allergies As of Date: 11/15/2021 [...] mixed anxiety and depr*01/20/2017 Encounter Status:Closed by ANTONIO CANADA on 11/15/21 [facility] CORBY Tele[facility] (PIPPA) [place] ([id number]) 1985 Date Time Provider Department 11/14/21 MADINA MARTINEZ During your visit today, we recorded the following information about you: Madina Martinez APRN.CNP 11/14/2021 8:54 AM Signed Can we find out why patient's CMP and HIV were not completed with recent blood work? MIYA Ruiz LPN 11/14/2021 10:34 AM Signed Per main [...] advised that one could be added on. Madina Martinez APRN.CNP 11/14/2021 1:35 PM Signed Orders in place for CMP and HIV. Madina Martinez APRN.MARY ANN Catherine RN 11/15/2021 10:07 AM Signed Pt called and is notified of providers message. Pt reports he will come in and get the CMP done, but he does not want to get the HIV done. Pt asking if provider could go over lab results. Please call and advise. Angelica Catherine RN Angelica Catherine RN 11/15/2021 1:34 PM Signed Patricia with [facility] lab reports they could not add the [...] mixed anxiety and depr*01/20/2017 Encounter Status:Closed by KEVINLOGMADINA DUNHAM on 12/11/21 Normal [facility] CBC panel Auto (Bld)on 11-07 Erythrocyte distribution width (RBC) [Ratio] 12.2 % Normal 11.5-15.0 [facility] Comment on above: Order Comment: Speci men Type: BLOOD SPECIMENOrdering Facility: [facility] Address: [address] [place], [place] [id number] Performed By: #### 5 8410-2 ####[facility] LABCLIA [id number] [address] STATES OF [facility] Hematocrit (Bld) [Volume fraction] 46.8 % Normal 39.0-51.0 [facility] Comment on above: Order Comment: Speci men Type: BLOOD SPECIMENOrdering Facility: [facility] Address: [address] [place] [address] Performed By: #### 5 8410-2 ####[facility] LABCLIA [id number] [address] STATES OF [facility] Hemoglobin (Bld) [Mass/Vol] 16.0 g/dL Normal 13.0-17.0 [facility] Comment on above: Order Comment: Speci men Type: BLOOD SPECIMENOrdering Facility: [facility] Address: [address] [place] [address] Performed By: #### 5 8410-2 ####[facility] LABCLIA [id number] [address] STATES OF [place] MCH (RBC) [Entitic mass] 29.5 pg Normal 26.0-34.0 [facility] Comment on above: Order Comment: Speci men Type: BLOOD SPECIMENOrdering Facility: [facility] Address: [address] [place] [address] Performed By: #### 5 8410-2 ####[facility] LABCLIA [id number] [address] STATES [facility] MCHC (RBC) [Mass/Vol] 34.2 g/dL Normal 30.5-36.0 [facility] Comment on above: Order Comment: Speci men Type: BLOOD SPECIMENOrdering Facility: [facility] Address: [address] [place], [place] [address] Performed By: #### 5 8410-2 ####[facility] LABIA [id number] [address] STATES OF [place] MCV (RBC) [Entitic vol] 86.3 fL Normal 80.0-100.0 [facility] Comment on above: Order Comment: Speci men Type: BLOOD SPECIMENOrdering Facility: [facility] Address: [address] [place], [place] [address] Performed By: #### 5 8410-2 ####[facility] LABCLIA [id number] [address] [place] Nucleated RBC (Bld) [#/Vol] 10*3/uL Normal <0.01 [facility] Comment on above: Order Comment: Speci men Type: BLOOD SPECIMENOrdering Facility: [facility] Address: [address] [place], [place] [address] Performed By: #### 5 8410-2 ####[facility] LABIA [id number] [place] [address] [place] Platelet mean volume (Bld) [Entitic vol] 9.4 fL Normal 9.0-12.7 [facility] Comment on above: Order Comment: Speci men Type: BLOOD SPECIMENOrdering Facility: [facility] Address: [address] [place], [place] [address] Performed By: #### 5 8410-2 ####[facility] LABIA [id number] [place] [address] [place] Platelets (Bld) [#/Vol] 217 10*3/uL Normal 150-400 [facility] Comment on above: Order Comment: Speci men Type: BLOOD SPECIMENOrdering Facility: [facility] Address: [address] [place], [place] [address] Performed By: #### 5 8410-2 ####[facility] LABIA [id number] [place] [address] [place] RBC (Bld) [#/Vol] 5.42 10*6/uL Normal 4.20-6.00 [facility] Comment on above: Order Comment: Speci men Type: BLOOD SPECIMENOrdering Facility: [facility] Address: [address] [place] [address] Performed By: #### 5 8410-2 ####[facility] LABIA [id number] [place] [address] [place] WBC (Bld) [#/Vol] 8.46 10*3/uL Normal 3.70-11.00 [facility] Comment on above: Order Comment: Speci men Type: BLOOD SPECIMENOrdering Facility: [facility] Address: [address] [place], [place] [address], [place] [address] Performed By: #### 5 8410-2 ####[facility] PARAG [id number] [place]ON [place]ON [id number] [id number] [place] CNOVon 11-07-2021 CNOV Office Visit (FAMPWS) [place] ([id number]) 1985 M Date Time Provider Department 11/07/21 3:40 PM WALTER LITTLEWS During your visit today, we recorded the [...] in July. Has had monthly appointments with [facility] Felix Awan with last OV 1 week ago and appointments every 2-4 weeks with counseling. No change to regimen. Symptoms well controlled without SI/HI, panic symptoms, manic episodes. F/u appointment with [facility] in 3 months. Weight in normal range. [...] tablet by mouth once daily. No current facility-administere d medications on file prior to visit. Social [...] 90 - (more content not included)... Normal [facility] HCV Ab Ser Qlon 11-07-2021 HCV Ab Ql (S) Positive Abnormal Negative [facility] Comment on above: Order Comment: Speci men Type: BLOOD SPECIMENOrdering Facility: [facility] Address: [address] [place] [address] Result Comment: Conf irmation with Hepatitis C RNA has been ordered and charged. Performed By: #### 1 6128-1, 64366-3 ####[facility] LABCLIA [id number] [address] OF [facility] HCV RNA SerPl LUANNE+probe-aCnc on 11-07-2021 HCV RNA LUANNE+probe Qn Not detected Normal HCV RNA not detected by PCR. [facility] Comment on above: Order Comment: Speci men Type: BLOOD SPECIMENOrdering Facility: [facility] Address: [address] [place] [address] Performed By: #### 1 6128-1, 66659-9 ####[facility] LABCLIA [id number] OF [facility] LIPID PANEL, NONFASTINGon Cholesterol [Mass/Vol] 181 mg/dL Normal <200 [facility] Comment on above: Order Comment: Speci men Type: BLOOD SPECIMENOrdering Facility: [facility] Address: [address] [place] [address] Result Comment: <200 mg/dL, Desirable 200-239 mg/dL, Borderline high >239 mg/dL, High Performed By: #### L IPNF ####[facility] LABCLIA [id number] [address] STATES OF [facility] HDL CHOLESTEROL, NF 55 mg/dL Normal >39 [facility] Comment on above: Order Comment: Speci men Type: BLOOD SPECIMENOrdering Facility: [facility] Address: [address] [place] [address] Result Comment: 40-5 9 mg/dL, Acceptable >59 mg/dL, High: Negative risk factor for coronary heart disease <40 mg/dL, Low: Positive risk factor for coronary heart disease Performed By: #### L IPNF ####[facility] LABCLIA [id number] [address] LDL CHOLESTEROL, NF 104 mg/dL High <100 [facility] Comment on above: Order Comment: Speci men Type: BLOOD SPECIMENOrdering Facility: [facility] Address: [address] [place], [place] [address] Result Comment: <100 mg/dL, Optimal 100-129 mg/dL, Near optimal/above optimal 130-159 mg/dL, Borderline high 160-189 mg/dL, High >189 mg/dL, Very high Secondary prevention optimal LDL Cholesterol levels are recommended to be < 70 mg/dL Performed By: #### L IPNF ####[facility] LABCLIA [id number] [address] OF [place] LDL/HDL RATIO, NF 1.89 mg/dL Normal <2.54 [facility] Comment on above: Order Comment: Speci men Type: BLOOD SPECIMENOrdering Facility: [facility] Address: [address] [place] [address] Result Comment: Bill wilcox: 1. National Cholesterol Education Program ATP III Guideline At-A-Glance Quick Desk Reference: National Heart, Lung, and Blood [place]. National Institutes of Health. 2001: NIH Publication No. 01-3305. 2. An International Atherosclerosis Society position paper: global recommendations for the management of dyslipidemia: executive summary, Atherosclerosis. 2014: 232(2):410-413. Performed By: #### L IPNF ####[facility] LABCLIA [id number] [address] OF [facility] NON HDL CHOL, NF 126 mg/dL Normal <130 [facility] Comment on above: Order Comment: Paruli men Type: BLOOD SPECIMENOrdering Facility: [facility] Address: [address] [place] [address] Result Comment: <130 mg/dL, Optimal 130-159 mg/dL, Near optimal/above optimal 160-189 mg/dL, Borderline high 190-219 mg/dL, High >219 mg/dL, Very high Secondary prevention optimal non HDL Cholesterol levels are recommended to be <100 mg/dL Performed By: #### L IPNF ####[facility] LABCLIA [id number] [address] T CHOL/HDL RATIO NF 3.29 mg/dL Normal <5.10 [facility] Comment on above: Order Comment: Speci men Type: BLOOD SPECIMENOrdering Facility: [facility] Address: [address] [address] Performed By: #### L IPNF ####[facility] LABCLIA [id number] [address] OF [place] TRIGLYCERIDES, NF 108 mg/dL Normal <150 [facility] Comment on above: Order Comment: Speci men Type: BLOOD SPECIMENOrdering Facility: [facility] Address: [address] [place] [address] Result Comment: <150 mg/dL, Normal 150-199 mg/dL, Borderline high 200-499 mg/dL, High >499 mg/dL, Very high Performed By: #### L IPNF ####[facility] LABCLIA [id number] [address] [facility] VLDL CHOLESTEROL, NF 22 mg/dL Normal <30 [facility] Comment on above: Order Comment: Speci men Type: BLOOD SPECIMENOrdering Facility: [facility] Address: [address] [phone] Performed By: #### L IPNF ####[facility] LABCLIA [id number] [address] CNOVon 08-04-2021 CNOV Office Visit (FAMPWS) [place] ([id number]) 1985 M Date Time Provider Department 08/04/21 3:20 PM [facility] During your visit today, we recorded the [...] suicidal ideation. Patient did follow up with [facility] counseling center and they restarted him [...] be seeing them. Has follow up with [facility] [employer] [facility] on August 17 and plans on following [...] tablet by mouth once daily. No current facility-administere d medications on file prior to visit. Social [...] Disposition History (more content not included)... Normal [facility] CNOVon 07-13-2021 CNOV Office Visit (FAMPWS) [place] ([id number]) 1985 Date Time Provider Department 07/13/21 3:20 PM [...] Paternal Grandmother car accident in mid 1970's - other (other) Paternal Grandfather of old age - Psychiatry Paternal Uncle suicide Patient Allergies ALLERGIES No Known Allergies Current Medications Current Outpatient Medications on File Prior to Visit Medication Sig - sertraline (ZOLOFT) 50 mg tablet Take 1 tablet by mouth once daily. (Patient not taking: Reported on (more content not included)... [facility] 07-13-2021 CNPN Telephone (PSCSTR) [place] ([id number]) 1985 Date Time Provider Department 07/13/21 XIMENA LOPEZ PSCSTR During your visit today, we recorded the following information about you: ÁNGELA Leon 07/13/2021 4:26 PM Addendum Behavioral Health Social Work Progress Note Patient identified for [facility] from: PCP Reason for referral: Resources Behavioral Health Resources: Psychology - talk therapy;Psychiatry med management [facility] encounter type: Telephone Encounter Attempts to Outreach: 1 attempt Referral made: Psychology - External;Psychiatry - External Psychology-External referral type: Therapy Psychiatry-External referral type: Medication Management Reason for external referral: Patient seeking senior care support Final Disposition: Resources given Patient Discharged?: Yes Patient reported that caregiver was able to meet their needs today?: Yes [facility] referral/consult placed for urgent with passive SI, left detailed vmx re consult placed, # [phone] provided. Will await call back, if no call back with in [facility] follow up time frame (1-2 weeks) will send ALTILIA message/mail out letter with resources. ÁNGELA Leon-S July 13, 2021 Allergies As of Date: 07/13/2021 (No Known Allergies) Date Reviewed: 07/13/2021 Reviewed by: Syl Castillo LPN - Fully Assessed Reason for Visit: Other [Other] Prescriptions as of 07/13/2021 - sertraline (ZOLOFT) 50 mg tablet Take 1 tablet by mouth once daily. Problem List As Of Date 07/13/2021 Noted Resolved Adjustment disorder with mixed anxiety and depr*01/20/2017 Encounter Status:Closed by XIMENA LOPEZ on 07/13/21 [facility] Telephone (PSCSTR) BERNARDQUE Simona ([id number]) 1985 M Date Time Provider Department 07/13/21 [facility] During your visit today, we recorded the following information about you: ÁNGELA Leon 07/13/2021 4:34 PM Signed BEHAVIORAL HEALTH SOCIAL WORK CONSULT NOTE Service Date: July 13, 2021 Patient was identified by name and Patient: [place] [address] [facility] [id number] [facility] [phone] (cell) PCP: Walter Little MD [address] [facility] [address] Patient identified for [facility] from: PCP Reason for referral: Resources [facility] encounter type: MyChart Message Attempts to Outreach: [...] Moderate Risk High Risk Patient identified for [facility] from: PCP Reason for referral: Resources Behavioral Health Resources: Psychology - talk therapy;Psychiatry med management [facility] encounter type: MyChart Message Assessment: Spoke with [...] going int to the [facility] for Crisis assessment . Pt will likely [...] assessment done with [facility]. [facility] provided supportive listening and education. Advised on Contin[employer] Managed Serviceshart to be sent with additional resources. Medications: Current Outpatient Medications on File Prior to Visit Medication Sig - sertraline (ZOLOFT) 50 mg tablet Take 1 tablet by mouth once daily. (Patient not taking: Reported on 07/13/2021 ) No current facility-administere d medications on file prior to visit. Curbside: No Screening Tools: No Substance Use / Abuse: No Outcome / Plan / Referrals: Attempts to Outreach: 3 attempts Referral made: Psychology - External;Psychiatry - External Psychology-External referral type: Therapy Psychiatry-External referral type: Medication Management Reason for external referral: Patient seeking senior care support Final Disposition: Resources given Patient Discharged?: Yes Internal Referrals : Yes -Patient advised of treatment options available at [facility]. Patient was informed that they will be moving on for further evaluation if seeking treatment within the [facility] system. Reason for External Referrals : Wait is too long and Location Intervention: Supportive Counseling Supportive Listening Education Pt was walking into crisis assessment with [facility] Resources Provided: Medication Management Talk Therapy Community Resources Time Spent: 31 minutes to 1 hour ROBLES Leon Allergies As of Date: 07/13/2021 (No Known Allergies) Date Reviewed: 07/13/2021 Reviewed by: Syl Castillo LPN - Fully Assessed Reason for Visit: patient outreach [Other] Prescriptions as of 07/13/2021 - sertraline (ZOLOFT) 50 mg tab (more content not included)... Normal [facility] OBSOLETEon 01-10-2021 OBSOLETE Refill (FAMPWS) [place] ([id number]) 1985 M Date Time Provider Department 01/10/21 [...] Date Reviewed: 09/07/2020 Reviewed by: Holly Gutierrez APRN.EDITOR - Fully Assessed Reason for Visit: Refill [...] Status:Closed by WALTER LITTLE on 01/10/21 Normal [facility] Vital Signs Date Time Vital Sign Value Performing Clinician Faci lity 10-18-2024 03:23-0400 Body temperature 98.1 [degF] Dr. Jhony Liz DO Work Phone: [facility] 10-18-2024 03:23-0400 Diastolic blood pressure 72 mm[Hg] Dr. Jhony Liz DO Work Phone: [facility] 10-18-2024 03:23-0400 Heart rate 48 /min Dr. Jhony Liz DO Work Phone: [facility] 10-18-2024 03:23-0400 Respiratory rate 16 /min Dr. Jhony Liz DO Work Phone: [facility] 10-18-2024 03:23-0400 SaO2% (BldA) [Mass fraction] 98 % Dr. Jhony Liz DO Work Phone: [facility] 10-18-2024 03:23-0400 Systolic blood pressure 112 mm[Hg] Dr. Jhony Liz DO Work Phone: [facility] 10-18-2024 00:44-0400 Body height 177.[address] Jhony Liz DO Work Phone: [facility] 10-18-2024 00:44-0400 Body mass index (BMI) [Ratio] 22.7 kg/m2 Dr. Jhony Liz DO Work Phone: [facility] 10-18-2024 00:44-0400 Body weight 71.[address] Jhony Liz DO Work Phone: [facility] 11-15-2021 15:54-0400 Body height 177.8 cm Giuliana Vidal MD Work Phone: [facility] 11-15-2021 15:54-0400 Body temperature 97.5 [degF] Giuliana Vidal MD Work Phone: [facility] 11-15-2021 15:54-0400 Body weight 78.47 kg Giuliana Vidal MD Work Phone: [facility] 11-15-2021 15:54-0400 Diastolic blood pressure 68 mm[Hg] Giuliana Vidal MD Work Phone: [facility] 11-15-2021 15:54-0400 Heart rate 57 /min Giuliana Vidal MD Work Phone: [facility] 11-15-2021 15:54-0400 SaO2% (BldA) [Mass fraction] 96 % Giuliana Vidal MD Work Phone: [facility] 11-15-2021 15:54-0400 Systolic blood pressure 122 mm[Hg] Giuliana Vidal MD Work Phone: [facility] 11-07-2021 15:41-0400 Body height 179.9 cm Walter Little MD Work Phone: [facility] 11-07-2021 15:41-0400 Body weight 77.93 kg Walter Little MD Work Phone: [facility] 11-07-2021 15:41-0400 Diastolic blood pressure 70 mm[Hg] Walter Little MD Work Phone: [facility] 11-07-2021 15:41-0400 Heart rate 64 /min Walter Little MD Work Phone: [facility] 11-07-2021 15:41-0400 Respiratory rate 16 /min Walter Little MD Work Phone: [facility] 11-07-2021 15:41-0400 SaO2% (BldA) [Mass fraction] 98 % Walter Little MD Work Phone: [facility] 11-07-2021 15:41-0400 Systolic blood pressure 114 mm[Hg] Walter Little MD Work Phone: [facility] Encounters Encounter Date Encounter Type Care Provider Facility Start: 10-20-2024 ambulatory Jhony Liz Facility:[facility] Start: 10-18-2024 End: 10-18-2024 Emergency department patient visit Dr. Jhony Liz DO Work Phone: -Emergency Department Work Phone: Start: 11-15-2021 End: 11-15-2021 Patient encounter procedure Giuliana Vidal MD Work Phone: General Surgery Comment on above: Epidermoid cyst of s kin of back Start: 11-15-2021 End: 11-15-2021 ambulatory Madina Martinez APRN.EDITOR Work Phone: [facility] Start: 11-15-2021 E-mail encounter fro m caregiver Madina Martinez APRN.EDITOR Work Phone: [facility] Start: 11-14-2021 Telephone encounter Madina callejas APRN.EDITOR Work Phone: Family [facility] Comment on above: Patient Update (Vita ent will need to return for CMP to be drawn. Missed at 11/07/21 draw. HIV was also missed but was advised that one could be added on.) Start: 11-07-2021 Patient encounter procedure WALTER LITTLE [facility] Start: 11-07-2021 End: 11-07-2021 ambulatory WALTER LITTLE Facility:[facility] Start: 11-07-2021 End: 11-07-2021 Patient encounter procedure Walter Little MD Work Phone: [facility] Comment on above: Annual physical exam (Primary Dx); LAKEISHA (generalized anxiety disorder); Severe episode of recurrent major depressive disorder, without psychotic features (HCC); Suicidal ideations; Screening for HIV (human immunodeficiency virus); Encounter for hepatitis C screening test for low risk patient; Epidermoid cyst of skin of back Start: 08-04-2021 End: 08-05-2021 ambulatory WALTER LITTLE Facility:[facility] Start: 07-14-2021 Chart abstracting Ximena MOTTA Work Phone: Adult Psychology Start: 07-13-2021 End: 07-13-2021 ambulatory Walter Little MD Work Phone: [facility] Start: 07-13-2021 Follow-up encounter Christian Little MD Work Phone: [facility] Comment on above: Follow Up Start: 07-13-2021 Telephone encounter Ximena MOTTA Work Phone: Adult Psychology Comment on above: Other patient outreach Procedures Date Procedure Procedure Detail Performing Clinician Start: 10-18-2024 X-ray of chest, PA a nd lateral views Dr. Jhony Liz DO Work Phone: Start: 10-18-[address] Jhony Liz DO Work Phone: Start: 11-04-2021 Adult depression screening assessment Walter Little MD Work Phone: Start: 07-13-2021 Adult depression screening assessment Ximena MOTTA Work Phone: Plan of Treatment Date Care Activity Detail Author Start: 04-07-2029 Urine microalbumin profile DTAP,TDAP,TD (6 - Td or Tdap) [facility] Start: 11-07-2026 LIPID SCREEN LIPID SCREEN [facility] Start: 10-18-2024 US Gallbladder [facility] Start: 10-18-2024 [facility] Start: 10-18-2024 End: 10-18-2024 [facility] Start: 11-07-2022 COVID-19 VACCINE (3 - Booster for Moderna series) COVID-19 VACCINE (3 - Booster for Moderna series) [facility] Comment on above: Postponed from 10/13 (Declined at this time) Postponed from 07/08 (Declined at this time) Start: 11-04-2022 Adult depression screening assessment DEPRESSION SCREENING [facility] Start: 07-13-2022 Adult depression screening assessment DEPRESSION SCREENING [facility] Start: 01-11-2022 LIPID SCREEN LIPID SCREEN [facility] Start: 11-09-2021 Influenza vaccination INFLUENZA (#1) [facility] Start: 11-07-2021 End: 01-07-2022 CBC panel - Blood by Automated count [facility] Work Phone: Comment on above: Expected: 11/07/2021 , Expires: 01/07/2022 Start: 11-07-2021 End: 01-07-2022 Comprehensive metabolic 2000 panel - Serum or Plasma COMP METABOLIC PANEL Lab Routine Annual physical exam Expected: 11/07/2021, Expires: 01/07/2022 [facility] Work Phone: Comment on above: Expected: 11/07/2021 , Expires: 01/07/2022 Start: 11-07-2021 End: 01-07-2022 Hepatitis C virus Ab [Presence] in Serum [facility] Work Phone: Comment on above: Expected: 11/07/2021 , Expires: 01/07/2022 Start: 11-07-2021 End: 01-07-2022 HIV 1+2 Ab [Presence] in Serum or Plasma by Immunoassay HIV 1 2 COMBO(AG/AB),WITH REFLEX TO DIFFERENTIATION Lab Routine Screening for HIV (human immunodeficiency virus) Expected: 11/07/2021, Expires: 01/07/2022 [facility] Work Phone: Comment on above: Expected: 11/07/2021 , Expires: 01/07/2022 Start: 11-07-2021 End: 01-07-2022 LIPID PANEL, NONFASTING [facility] Work Phone: Comment on above: Expected: 11/07/2021 , Expires: 01/07/2022 Start: 09-07-2021 HEPATITIS C SCREENING HEPATITIS C [facility] Comment on above: Postponed from 09/08 (Declined at this time) Start: 09-07-2021 HIV SCREENING HIV SCREENING [facility] Comment on above: Postponed from 09/08 (Declined at this time) Start: 03-11-2021 DEPRESSION ASSESSMENT DEPRESSION ASS ESSMENT [facility] Start: 10-13-2020 COVID-19 VACCINE (3 - Booster for Moderna series) COVID-19 VACCINE (3 - Booster for Moderna series) [facility] Start: 2002 HEPATITIS C SCREENING HEPATITIS C [facility] Start: 2002 HIV SCREENING HIV SCREENING [facility] Patient Education Abdominal Pain ED Chest Pain, Uncertain Cause [facility] Work Phone[facility] Immunizations Immunization Date Immunization Notes Care Provider Fa jammie 05-13-2020 COVID-19 vaccine, fu ll dose (MODERNA) Ximena Krems [employer]AKERY TEAM MEMBER Work Phone: [facility] 04-12-2020 COVID-19 vaccine, fu ll dose (MODERNA) Ximena Krems BAKERY TEAM MEMBER Work Phone: [facility] 04-07-2019 tetanus toxoid, redu daria diphtheria toxoid, and acellular pertussis vaccine, adsorbed Ximena [employer] BAKERY TEAM MEMBER Work Phone: [facility] 12-23-2018 influenza, injectabl e, quadrivalent, contains preservative Ximena Libox BAKERY TEAM MEMBER Work Phone: [facility] 12-26-2017 influenza virus vaccine, unspecified formulation Ximena Krems BAKERY TEAM MEMBER Work Phone: [facility] 01-11-2017 influenza, injectabl e, quadrivalent, contains preservative Ximena [employer] Work Phone: [facility] 12-20-2015 influenza, seasonal, injectable, preservative free Ximena [employer] Work Phone: [facility] 12-16-2015 influenza, injectabl e, quadrivalent, contains preservative Ximena Libox BAKERY TEAM MEMBER Work Phone: [facility] Work Phone: 06-11-2012 hepatitis B vaccine, adult dosage Ximena Lopez BAKERY TEAM MEMBER Work Phone: [facility] 01-04-2012 hepatitis B vaccine, pediatric or pediatric/adolescent dosage Ximena John BAKERY TEAM MEMBER Work Phone: [facility] 11-29-2011 hepatitis B vaccine, pediatric or pediatric/adolescent dosage Ximena Lopez BAKERY TEAM MEMBER Work Phone: [facility] 07-20-1997 measles, mumps and rubella virus vaccine Ximena [email or web address] Work Phone: [facility] 11-23-1986 haemophilus influenz ae type b vaccine, conjugate unspecified formulation Ximena [employer] Work Phone: [facility] 03-30-1986 diphtheria, tetanus toxoids and pertussis vaccine Ximena [employer] Work Phone: [facility] 03-30-1986 trivalent poliovirus vaccine, live, oral Ximena [employer] Work Phone: [facility] 01-13-1986 measles, mumps and rubella virus vaccine Ximena [email or web address] Work Phone: [facility] 04-15-1985 diphtheria, tetanus toxoids and pertussis vaccine Ximena [employer] Work Phone: [facility] 01-28-1985 diphtheria, tetanus toxoids and pertussis vaccine Ximena [employer] Work Phone: [facility] 01-28-1985 trivalent poliovirus vaccine, live, oral Ximena Lopez BAKERY TEAM MEMBER Work Phone: [facility] 1985 diphtheria, tetanus toxoids and pertussis vaccine Ximena [employer] Work Phone: [facility] 1985 trivalent poliovirus vaccine, live, oral Ximena [email or web address] Work Phone: [facility] Payers Date Payer Category Payer Self-pay 2020 Unknown MMO MMO [employer] [id number] 2020-Present [phone] [address] [place] [address] PPO [id number] 2020 Unknown MMO MMO [employer] [id number] 2020-Present [phone] [address] [place] [address] PPO [id number] 2020 Unknown [id number] 2011 Unknown [id number] Unknown [id number] Unknown [id number] Social History Date Type Detail Facility Start: 03-20-2014 End: 10-18-2024 Tobacco smoking status [facility] Never smoked tobacco [facility] Work Phone: Start: 03-20-2014 End: 11-07-2021 Tobacco use and exposure Smokeless tobacco non-user [facility] Work Phone: Start: 07-13-2021 End: 11-07-2021 Alcohol intake Current drinker of alcohol (finding) [facility] Start: 04-08-2019 End: 07-31-2021 History SDOH Alcohol Frequency 4 [facility] Start: 04-08-2019 End: 07-31-2021 History SDOH Alcohol Std Drinks 1 [facility] Start: 09-07-2020 History SDOH Alcohol Comment occasional [facility] Start: 1985 Sex Assigned At Not on file [facility] Start: 07-03-2021 End: 11-15-2021 Exposure to SARS-CoV-2 (event) Not sure [facility] Work Phone: Start: 11-07-2021 End: 11-15-2021 Alcohol intake [facility] Start: 07-31-2021 History SDOH Alcohol Binge 2 [facility] Start: 07-31-2021 History SDOH Social Connections Phone 5 [facility] Start: 07-31-2021 History SDOH Social Connections Living 3 [facility] Start: 1985 Sex Assigned At Male [facility] Mental Status Date Assessment Result Facility 10-18-2024 Cognitive function Voice/Name [facility] Work Phone: Clinical Notes 07-13-2021 to 10-18-2024 Giuliana Vidal MD - 11/16/2021 6:51 PM EDTMfaiza Mariscal LPN - 11/15/2021 3:56 PM EDTTelephone Encounter - Madina Martinez EMPLOYEE RELATIONS REPRESENTATIVE.EDITOR - 11/15/2021 2:02 PM EDT Note Date & Type Note Facility 10-18-2024 Radiology Diagnostic study note [facility] Imaging Services [address] [place], [place] [address] Chest PA and Lateral MR#: [id number] Acct: [id number] Name: QUE KEY Rep #: [id number] : 1985 M 39 From: Rani Ricci MD PCP: Care Physician,No Primary Status: PRE ER Study:Chest PA and Lateral Date of Exam: 10/18/24 Exam# [id number] Ordering Dr: Jennifer Liz DO PROCEDURE: CHEST PA AND LATERAL 10/18/2024 REASON FOR EXAM: CHEST PAIN TECHNIQUE: CHEST PA AND LATERAL COMPARISON: No FINDINGS: Normal heart size. Well inflated lungs. No consolidation, effusion, or pneumothorax. RAD/Chest PA and Lateral IMPRESSION: No acute chest findings. Reading Location: RAD-KEIRY-2 CC: Jhony Liz DO; No Primary Care Physician ~ Securities Compliance Examiner: Signed [facility] 11-16-2021 Note HNO ID: [id number] Author: Giuliana Vidal MD Service: ? Author [...] entered by the nurse and reviewed by ca Nursing Notes: Mariposa Mariscal LPN 11/15/2021 3:57 [...] of back PLAN (more content not included)... [facility] 11-16-2021 History of Presen t illness Narrative Que Jarvis Bernard 1985 REFERRING PHYSICIAN: Walter Little,* CHIEF COMPLAINT: [...] entered by the nurse and reviewed by ca Nursing Notes: Mariposa Mariscal LPN 11/15/2021 3:57 [...] Giuliana Vidal MD documented in this encounter [facility] 11-15-2021 Nurse Note REVIEW OF SYSTEMS: General: [...] Mariposa Mariscal LPN documented in this encounter [facility] 11-15-2021 Miscellaneous Notes Patient did not HIV testing completed. Madina Martinez APRN.CNP documented in this encounter [facility] 11-15-2021 Miscellaneous Notes Patricia with [facility] lab [...] Orders in place for CMP and HIV. Madina Martinez APRN.MARY ANN Phone patient and message left for him [...] were not completed with recent blood work? Madina Martinez APRN.CNP documented in this encounter [facility] 11-07-2021 Note HNO ID: [id number] Author: Walter Little MD Service: ? Author Type: Physician Type: Progress Notes Filed: 11/07/2021 4:42 PM Note Text: Chief Complaint Patient presents with: Physical HPI Que Key is a 36 year old male who presents here today for annual physical. No complaints. Patient started on Zoloft by counseling center for anxiety/depression with suicidal ideation back in July. Has had monthly appointments with [employer] Felix Awan with last OV 1 week ago and appointments every 2-4 weeks with counseling. No change to regimen. Symptoms well controlled without SI/HI, panic symptoms, manic episodes. F/u appointment with [employer] in 3 months. Weight in normal range. [...] year - CBC (more content not included)... [facility] 11-07-2021 History of Presen t illness Narrative Chief Complaint Patient presents with: Physical HPI Que Key is a 36 year old male who presents here today for annual physical. No complaints. Patient started on Zoloft by counseling center for anxiety/depression with suicidal ideation back in July. Has had monthly appointments with [employer] Felix Awan with last OV 1 week ago and appointments every 2-4 weeks with counseling. No change to regimen. Symptoms well controlled without SI/HI, panic symptoms, manic episodes. F/u appointment with [employer] in 3 months. Weight in normal range. [...] Walter Little MD documented in this encounter [facility] 08-04-2021 Note HNO ID: [id number] Author: Walter Little MD Service: ? Author [...] suicidal ideation. Patient did follow up with [facility] at counseling center and they restarted him [...] be seeing them. Has follow up with [employer] on August 17 and plans on following [...] months for annual physical. Walter Little MD [facility] 07-17-2021 Miscellaneous Notes PATIENT RESCHEDULED 08/04. WILL [...] that are added. documented in this encounter [facility] 07-13-2021 Note HNO ID: [id number] Author: Walter Little MD Service: ? Author [...] - Drug use: (more content not included)... [facility] 07-13-2021 Miscellaneous Notes Images from the original note were not included. BEHAVIORAL HEALTH SOCIAL WORK CONSULT NOTE Service Date: July 13, 2021 Patient was identified by name and Patient: Que Key [address] [place] [id number] (home) [phone] (cell) PCP: Walter Little MD [address] [place] [address] Patient identified for [facility] from: PCP Reason for referral: [facility] encounter type: MyChart Message Attempts to Outreach: [...] Moderate Risk High Risk Patient identified for [facility] from: PCP Reason for referral: [facility] Behavioral Health Resources: Psychology - talk therapy;Psychiatry med management [facility] encounter type: MyChart Message Assessment: Spoke with [...] going int to the [facility] for Crisis assessment . Pt will likely [...] assessment done with the [facility]. [facility] provided supportive listening and education. Advised on [...] Management Reason for external referral: Patient seeking ferry terminal agent support Final Disposition: Resources given Patient Discharged?: Yes Internal Referrals : Yes -Patient advised of treatment options available at [facility]. Patient was informed that they will be moving on for further evaluation if seeking treatment within the [facility] system. Reason for External Referrals : Wait is too long and Location Intervention: Supportive Counseling Supportive Listening Education Pt was walking into crisis assessment with [facility] Resources Provided: Medication Management Talk Therapy Community Resources Time Spent: 31 minutes to 1 hour ÁNGELA Leon-Frank documented in this encounter [facility] 07-13-2021 Miscellaneous Notes Behavioral Health Social Work Progress Note Patient identified for [facility] from: PCP Reason for referral: BH Resources Behavioral Health Resources: Psychology - talk therapy;Psychiatry med management [facility] encounter type: Telephone Encounter Attempts to Outreach: 1 attempt Referral made: Psychology - External;Psychiatry - External Psychology-External referral type: Therapy Psychiatry-External referral type: Medication Management Reason for external referral: Patient seeking senior care support Final Disposition: Resources given Patient Discharged?: Yes Patient reported that caregiver was able to meet their needs today?: Yes [facility] referral/consult placed for urgent with passive SI, left detailed vmx re consult placed, # [phone] provided. Will await call back, if no call back with in [facility] follow up time frame (1-2 weeks) will send ALTILIA message/mail out letter with resources. ÁNGELA Leon-Frank July 13, 2021 documented in this encounter [facility] Evaluation note Diagnosis Annual physical exam- Primary [...] skin of back [facility] Diagnosis Epidermoid cyst of skin of back documented in this encounter [facility] noteNo assessment information availableWOhio [facility] Work Phone: Hospital Discharge instructionsAdditional Instructions Please obtain your ultrasound of the gallbladder as an outpatient to rule out gallstones or gallbladder infection as a cause of your pain. However if you develop a fever or have worsening pain prior to obtaining this then return to the ER for repeat evaluation. Your workup today did not show any sign of active heart damageWOhio Valley Hospital Work Phone: Reason for referral (narrative)No reason for referral information availableWOhio Valley Hospital Work Phone: Reason for Referral Specialty Diagnoses / Procedures Referred By Dima mtz Referred To Contact General Surgery Diagnoses Epidermoid cyst of skin of back Procedures CONSULT TO GENERAL SURGERY OFFICE/OUTPATIENT [facility] 60-74 MINUTES Walter Little MD [address] [place] [address] Referral ID Status Reason Start Date Expiration Date Visits Requested Visits Authorized [id number] Authorized PCP Requested Referral 11/07/2021 11/07/2022 1 1 Summary Purpose Family History No Family History Records FoundNo Family History Records Found Advance Directives No Advanced Directives Records Found Advance Directive Response Recorded Date/ Time Do you have a Healthcare Power of Inspector Floor Sub Assembly? No October 18, 2024 12:48am Advance Directives No April 13, 2014 3:57pm Chief Complaint and Reason for Visit Chief Complaint Admit Date chest pain October 18, 2024 12 :43am Additional Source Comments Source Comments (unrecognize d section and content) In the event this informatio n is protected by the Federal Confidentiality of Alcohol and Drug Abuse Patient Records regulations: The Federal rules restrict any use of the information to criminally investigate or prosecute any alcohol or drug abuse patient.[facility] Hospital[facility] the event this information is protected by the Federal Confidentiality of Alcohol and Drug Abuse Patient Records regulations: The Federal rules restrict any use of the information to criminally investigate or prosecute any alcohol or drug abuse patient.[facility] HospitalIn the event this information is protected by the Federal Confidentiality of Alcohol and Drug Abuse Patient Records regulations: The Federal rules restrict any use of the information to criminally investigate or prosecute any alcohol or drug abuse patient.[facility] HospitalIn the event this information is protected by the Federal Confidentiality of Alcohol and Drug Abuse Patient Records regulations: The Federal rules restrict any use of the information to criminally investigate or prosecute any alcohol or drug abuse patient.[facility] HospitalIn the event this information is protected by the Federal Confidentiality of Alcohol and Drug Abuse Patient Records regulations: The Federal rules restrict any use of the information to criminally investigate or prosecute any alcohol or drug abuse patient.[facility] HospitalIn the event this information is protected by the Federal Confidentiality of Alcohol and Drug Abuse Patient Records regulations: The Federal rules restrict any use of the information to criminally investigate or prosecute any alcohol or drug abuse patient.[facility] HospitalIn the event this information is protected by the Federal Confidentiality of Alcohol and Drug Abuse Patient Records regulations: The Federal rules restrict any use of the information to criminally investigate or prosecute any alcohol or drug abuse patient.[facility] HospitalIn the event this information is protected by the Federal Confidentiality of Alcohol and Drug Abuse Patient Records regulations: The Federal rules restrict any use of the information to criminally investigate or prosecute any alcohol or drug abuse patient.[facility] Reason for Visit (unrecogniz ed section and content) Reason Comments Other Reason Comments patient outreach Reason Comments Physical Reason Comments Consult Cyst on back Specialty Diagnoses / Procedures Referred By Dima mtz Referred To Contact General Surgery Diagnoses Epidermoid cyst of skin of back Procedures CONSULT TO GENERAL SURGERY OFFICE/OUTPATIENT [facility] MDM 60-74 MINUTES Walter Little MD [address] [place] [address] Referral ID Status Reason Start Date Expiration Date V isits Requested Visits Authorized [id number] Closed PCP Requested Referral 11/07/2021 11/07/2022 1 1 Reason Comments Patient Update Patient will need to return for CMP to be drawn. Missed at 11/07/21 draw. HIV was also missed but was advised that one could be added on. Care Teams (unrecognized sec tion and content) Elementary Reading Specialist Relationship Specialty Start Date End Date Walter Little MD [address] [place] [address] PCP - General Family Practice 04/07/19 Elementary Reading Specialist Relationship Specialty Start Date End Date Walter Little MD [address] [place] [address] PCP - General Family Practice 04/07/19 Elementary Reading Specialist Relationship Specialty Start Date End Date Walter Little MD [address] [facility], [place] [address] PCP - [facility] 04/07/19 Elementary Reading Specialist Relationship Specialty Start Date End Date Walter Little MD [address] [place] [address] PCP - [facility] 04/07/19 Elementary Reading Specialist Relationship Specialty Start Date End Date Walter Little MD [address] [place] [address] PCP - [facility] 04/07/19 Elementary Reading Specialist Relationship Specialty Start Date End Date Walter Little MD [address] [facility], [place] [address] PCP - [facility] 04/07/19 Elementary Reading Specialist Relationship Specialty Start Date End Date Walter Little MD [address] [facility], [place] [address] PCP - General Family Medicine 04/07/19 Team Status: Active Member Role/Relationship Status Dates Dr. Alexx Love MD Primary Care Provider Active Team Status: Inactive Member Role/Relationship Status Dates Dr. Jhony Liz DO Emergency Provider Active Start: October 18, 2024 End: October 18, 2024 Dr. Alexx Love MD Primary Care Provider Active Start: October 18, 2024 End: October 18, 2024 (unrecognized sect ion and content) No Status Records FoundNo Status Records Found INFORMATION SOURCE (unrecogn ized section and content) DATE CREATED AUTHOR 12/13/2021 [facility] DATE CREATED AUTHOR AUTHOR'S ORGANIZ ATION 10/20/2024 [facility] Goals (unrecognized section and content) Goals may be documented in a n alternate section FOR RECORDS PERTAINING TO PATIENTS WHO ARE [...] BE BASED ON THE PRIMARY CLINICAL RECORDS. [facility]. provides no warranty or guarantee of the accuracy or completeness of information in this document.
== END | disposition home or self-care (01) ==
LOC: US 07:29
PROVIDERS: PCP Family Medicine; Referring Provider Emergency Medicine; Visit Provider Emergency Medicine
DX: R10.11 Right upper quadrant pain (principal)
CPT/HCPCS: 76705